=== PATIENT | female | born 1980 | race African-American/Black ===

== ENCOUNTER 2017-10-10 23:33 | Observation (INO) | payer MEDICAID, SELFPAY ==
[2017-10-10] MEDS ORDERED: Ketorolac Tromethamine 30 MG/ML VIAL ONE (23:54)
[2017-10-10] MEDS ORDERED: methylPREDNISolone Sod Succ/PF 125 MG/2 ML VIAL ONE (23:54)
[2017-10-10] MEDS ORDERED: Magnesium Sulfate 2 GM/100 ML BAG ONE (23:56)
[2017-10-11 00:18] LABS: BHCG - Serum Negative (NEGATIVE); Pregs Control Background? CLEAR/WHITE (CLR/WHITE); Pregs Control Bar Appear? YES (CONTROL BAR)
[2017-10-11] MEDS ORDERED: Ondansetron ODT 4 MG TAB SL PRN (02:43)
[2017-10-11] MEDS ORDERED: Acetaminophen 325 MG TAB PO PRN ×2 (02:43→07:29)
[2017-10-11] MEDS ORDERED: Sodium Chloride 0.9% 1,000 ML IV SCH (02:43)
[2017-10-11] MEDS ORDERED: Ondansetron HCl/PF 4 MG/2 ML Vial IVP PRN ×2 (02:43→07:29)
[2017-10-11] MEDS ORDERED: traMADol HCl 50 MG TAB PO PRN ×2 (02:45→07:29)
[2017-10-11 03:12] VITALS: BMI 36.3
[2017-10-11] MEDS ORDERED: HumaLOG 300 UNITS/3 ML VIAL SC PRN (07:24)
[2017-10-11] MEDS ORDERED: Dextrose 50% Abboject 50 ML SYRINGE SLOW IVP PRN (07:24)
[2017-10-11] MEDS ORDERED: Dextrose 5% in Water 1,000 ML IV PRN (07:24)
[2017-10-11] MEDS ORDERED: Bisacodyl 5 MG TAB PO PRN (07:29)
[2017-10-11] MEDS ORDERED: Calcium Carbonate 500 MG ChewTAB PO PRN (07:29)
[2017-10-11] MEDS ORDERED: Mag-Al 1200 mg/1200 mg/30 ML UDCUP PO PRN (07:29)
[2017-10-11] MEDS ORDERED: Senokot 8.6 MG TAB PO PRN (07:29)
[2017-10-11] MEDS ORDERED: Nitroglycerin 0.4 MG TAB (25 Tab Bottle) SL PRN (07:29)
[2017-10-11] MEDS ORDERED: Benzonatate 100 MG CAP PO PRN (07:29)
[2017-10-11] MEDS ORDERED: hydrALAZINE 20 MG/ML VIAL SLOW IVP PRN (07:29)
[2017-10-11] MEDS ORDERED: Loratadine 10 MG TAB PO PRN (07:29)
[2017-10-11] MEDS ORDERED: Diabetic Tussin 200 MG/10 ML UDCUP PO PRN (07:29)
[2017-10-11] MEDS ORDERED: cloNIDine 0.1 MG TAB PO PRN (07:29)
--- NOTE | 2017-10-11 08:47 | CT ---
PRELIMINARY REPORT/[facility]/EMERGENCY AFTER HOURS PROCEDURE: Addendum created by Charles Manriquez MD on 10/11/2017 1:01 AM Central Time ([place] & [place]) THIS REPORT CONTAINS FINDINGS THAT MAY BE CRITICAL TO PATIENT CARE. The findings and recommendation w ere verbally communicated via telephone conference with Dr May 1:00 AM LABOR UTILIZATION SUPERINTENDENT on 10/11/2017. The findi ngs and recommendation were acknowledged and understood. Initial Report created on 10/11/2017 12:53 AM Central Time ([place] & [place]) EXAM: CT Angiography Neck With Intravenous Contrast CLINICAL HISTORY: 37 years old, female; Pain; Other: Neck pain TECHNIQUE: Axial computed tomographic angiography images of the neck with intravenous contrast using CT angiogra phy protocol. Coronal and sagittal reformatted images were created and reviewed. CONTRAST: 100 mL of ISOVUE administered intravenously. COMPARISON: No relevant prior studies available. FINDINGS: VASCULATURE: Right common carotid artery: No significant stenosis. No dissection or occlusion. Right internal carotid artery: Extracranial segment is patent with no significant stenosis. No dissec tion or occlusion. Right external carotid artery: No occlusion. Right vertebral artery: No significant stenosis. No dissection or occlusion. Left common carotid artery: No significant stenosis. No dissection or occlusion. Left internal carotid artery: Extracranial segment is patent with no significant stenosis. No dissect ion or occlusion. Left external carotid artery: No occlusion. Left vertebral artery: No significant stenosis. No dissection or occlusion. Basilar artery: Fenestration of the basilar artery. No significant stenosis. No occlusion. NECK: Bones/joints: No acute fracture. No dislocation. Soft tissues: A 2.5 x 1.9 cm soft tissue mass in the left submandibular gland. Lymph nodes: Scattered nonspecific bilateral lymph nodes are present. Dental: Multiple dental restorations. CAROTID STENOSIS REFERENCE USING NASCET CRITERIA: % ICA stenosis = (1 - narrowest ICA diameter/diameter of distal cervical ICA) x 100. Mild - <50% stenosis. Moderate - 50-69% stenosis. Severe - 70-94% stenosis. Near occlusion - 95-99% stenosis. Occluded - 100% stenosis. IMPRESSION: 1. No acute findings. 2. A 2.5 cm soft tissue mass in the left submandibular gland suspicious for neoplasm. Recommend ENT c onsult. Thank you for allowing us to participate in the care of your patient. Dictated and Authenticated by: Charles Manriquez MD 10/11/2017 12:53 AM Central Time ([place] & [place]) FINAL REPORT EMERGENT AFTER HOURS CTA OF THE NECK WITH CONTRAST: TECHNIQUE: Multiple contiguous axial images were obtained in a CTA of the neck with contrast. Three-D sagittal and coronal MIP reformats were performed. FINDINGS/IMPRESSION: I agree with the findings and impression given in the preliminary report per [facility] physician. 1. There is no evidence of significant stenosis of the carotid arteries per NASCET criteria. 2. There is a left submandibular mass. POS: [facility]
[2017-10-11] MEDS: Sodium Chloride 0.9% 1,000 ML IV SCH ×2 (08:58→16:16)
[2017-10-11] MEDS: glyBURIDE 5 MG TAB PO SCH ×2 (08:58→16:23)
[2017-10-11] MEDS: Lisinopril 10 MG TAB PO SCH (08:59)
[2017-10-11] MEDS ORDERED: Lisinopril 10 MG TAB PO SCH (09:00)
--- NOTE | 2017-10-11 10:37 | HP ---
PRIMARY CARE PHYSICIAN: Yogi Carolina M.D. CHIEF COMPLAINT: Persistent headache on the right posterior skull. HISTORY OF PRESENTING ILLNESS: Ms. Grey is a very pleasant 37-year-old -British female with past medical history of diabetes mellitus and hypertension who is here with above-mentioned complain ts. History is mainly obtained by the patient herself and electronic medical records have been revie wed. The patient initially presented to [facility] yesterday for the above-mentione d complaint. She reports that she has been feeling fine up until about 1 or 2 months ago, but lately she has been having worsening headache in the posterior part of the right side which have now become constant. It has gone so severe that now she is experiencing some dizziness, vision changes, and facial droop on the right side. She got scared when these symptoms happened when she was driving in the car with her kids and had to pullover. She says holding her head and her hand somewhat alleviate the pain, but i t is very localized to the posterior right side of the head. It is associated with some nausea, but no vomiting. She does not have any history of migraines per se. She has been in otherwise in usual health. She underwent a CT scan of her head at [facility] which was unremarkable. She recei alejandra aspirin 324 mg along with Reglan and Benadryl, and was transferred to [facility] emergency room f or rule out stroke. In the emergency room at [facility], she was found to have lymph node like swelling in the left subma ndibular region and underwent a CT angio of the neck. She was found to have a 2.5 cm submandibular m ass in the left submandibular space which was suspicious for neoplasm. She was given magnesium pain medications and Solu-Medrol 125 mg IV x1 and is now being admitted for further evaluation. The patient reports that she has noticed this swelling for more than a year now. When asked, she end orses some weight loss over the course of quite a few months and night sweats. She denies any other symptoms recently. She denies any other swellings. She does have a strong history of cancer running in her family and multiple family members. Some of them had lung cancer, others bone cancer, but sh e could not specify. PAST MEDICAL HISTORY: 1. Diabetes mellitus. 2. Hypertension. PAST SURGICAL HISTORY: 1. Surgery to left broken ankle in 1997. 2. Cataract surgery, 06/2014. PSYCHIATRIC HISTORY: None. SOCIAL HISTORY: She smokes half pack of cigarettes per day. No history of drug, tobacco or alcohol abuse. FAMILY HISTORY: Multiple family members with diabetes and hypertension. Multiple family members wit h various types of cancers. Both of her parents were diabetic and they are now . Her mother of unknown type of cancer. One of her cousins recently was diagnosed with liver cirrhosis and eventually liver cancer and is . ALLERGIES: No known medication allergies. CURRENT MEDICATIONS: Levemir 40 units at bedtime, Glucotrol 2 tablets 5 mg each at bedtime, lisinopr il 10 mg in the morning. REVIEW OF SYSTEMS: The following complete review of systems was negative, unless otherwise mentioned in the HPI or below: Constitutional: Weight loss or gain, ability to conduct usual activities. Skin: Rash, itching. Eyes: Double vision, pain. ENT/Mouth: Nose bleeding, neck stiffness, pain, tenderness. Cardiovascular: Palpitations, dyspnea on exertion, orthopnea. Respiratory: Shortness of breath, wheezing, cough, hemoptysis, fever or night sweats. Gastrointestinal: Poor appetite, abdominal pain, heartburn, nausea, vomiting, constipation, or diarr hea. Genitourinary: Urgency, frequency, dysuria, nocturia. Musculoskeletal: Pain, swelling. Neurologic/Psychiatric: Anxiety, depression. Allergy/Immunologic: Skin rash, bleeding tendency. If it is negative except for those mentioned in the history and physical. PHYSICAL EXAMINATION: VITAL SIGNS: Upon presentation include blood pressure 113/68, pulse of 82, respirations 16, temperat ure 97.8, and saturating 99% on room air. GENERAL: No acute distress, awake, alert, oriented x3, very pleasant. HEENT: Mucous membrane is moist and pink. No oropharyngeal exudate or erythema. Head is normocepha lic, atraumatic. Pupils are equal, reactive to light and accommodation. NECK: Examination shows immobile nontender lymph node like swelling in the left submandibular region . No other lymph nodes noticed in the supraclavicular, cervical or posterior auricular chain. No JV D or bruit. LYMPH NODE: On examination, no inguinal lymphadenopathy noticed. No hepatosplenomegaly. CHEST: Clear to auscultation without any wheezing, rales or rhonchi. Rate and rhythm is regular wit hout any murmur, rubs or gallops. ABDOMEN: Soft, nontender, and nondistended without any hepatosplenomegaly. EXTREMITIES: Free of any cyanosis, clubbing, or edema. NEUROLOGIC: Examination is nonfocal. SKIN: Free of any rashes or bruises, feels warm and dry to touch. PSYCHIATRIC: Normal affect. LABORATORY DATA AND IMAGING DATA: 1. Her CBC is rather unremarkable. She has 1% band and 1.5% basophils. Serum chemistries show bloo d sugar of 146, otherwise unremarkable. Her liver enzymes are within normal limits. Cardiac enzymes , troponin less than 0.010, albumin 3.9, globulin 3.9, albumin to globulin ratio is 1. 2. CT scan of the brain by my review has no evidence of any mass, lesions or hemorrhages. 3. CT angio of the neck has no evidence to suggest any stenosis of the neck, blood vessels, but does show a 2.5 cm soft tissue mass in the left submandibular region in the gland suspicious for neoplasm . IMPRESSION AND PLAN: 1. Headaches. At this time, the etiology is unclear. It can be a referred pain from what she calls "a bad tooth." It is unclear if the submandibular swelling is the reason for the headache. She had a normal CT scan of the brain. Possibility of this stroke is less likely given the normal neurologi radha examination. We will request consultation with Neurology for further recommendations. At this t ketan, continue symptomatic and supportive care. We will hold off on any further imaging studies until Neurology has seen the patient. She is neurologically intact. 2. Submandibular gland mass, it is suspicious for glandular neoplasm. She does not have any lymphad enopathy on my examination. ENT has been consulted by the Emergency Room and we will follow the deysi mmendations. She most likely would need a biopsy and for this reason, we will keep her n.p.o. for no w and start her on some gentle IV fluid hydration. 3. Hypertension. Resume her home medication of lisinopril with close monitoring. 4. Diabetes mellitus. We will restart her glyburide and put her on insulin sliding scale with frequ ent Accu-Cheks. 5. Obesity. 6. History of diabetic neuropathy. 7. Tobacco abuse. The patient has been counseled. 8. Code status: FULL CODE. Discussed with the patient. DISPOSITION: Ms. Grey is being admitted for intractable headache and evaluation of submandibular gl and swelling. We will initiate the workup which can be finished as an outpatient. She is currently admitted under observation status. Further management will depend upon her clinical course.
--- NOTE | 2017-10-11 13:01 | CON ---
DATE OF CONSULTATION: 10/11/2017 CHIEF COMPLAINT: Headache, which is new onset. HISTORY OF PRESENT ILLNESS: The patient is a 37-year-old lady who has had some submandibular gland masses both sides for the past year or so and she reports that those have not caused any pain or problems to her. Her reason for current visit is headache. She has been having headaches for 1 month, but she came to the ER because of fear due to having headache while driving and she slows down and the headache is described to me as being occipital headache with radiation to the right side of the head associated with recent problems and nausea and can last several hours. There is no photophobia or phonophobia, no vomiting, no weakness of extremities or dizziness. The patient has been having them recurrently and she also is trying to find out why she has these headaches and she would like them to be resolved. Other than diabetes, she is fairly healthy. PAST MEDICAL HISTORY: The patient has diabetes and is on insulin and she is also hypertensive. The patient has had a CT angiogram of the head and neck and also has received prior CT at [facility]. PAST SURGICAL HISTORY: Left broken ankle in 1997, cataract surgery in 06/2014. SOCIAL HISTORY: Smokes half pack of cigarettes a day and does not drink alcohol. Works fulltime. FAMILY HISTORY: Multiple family members with diabetes and hypertension, and mother had hepatic cancer, one of her cousins has liver cirrhosis and had liver cancer and . CURRENT MEDICATIONS: She is on insulin, Glucotrol and lisinopril. ALLERGIES: NKDA REVIEW OF SYSTEMS: PULMONARY: Normal. No shortness of breath or cough. CARDIAC: No chest pain or palpitations. GASTROINTESTINAL: Positive for nausea. No diarrhea or vomiting. NEUROLOGIC: Positive for headaches and vision problems. GENITOURINARY: Negative for urinary frequency, dysuria, nocturia. MUSCULOSKELETAL: Negative for any aches and pains. ENDOCRINE: Positive for DM. LABORATORY DATA: Glucose 410, white count 7.6, hemoglobin 13.3, hematocrit 42.6 , and platelets 318. PT 13.6, INR 1.0 and sodium was 140, potassium 3.9, chloride 106, bicarbonate 22, BUN 8, creatinine 0.82. CT Head report noted, she has a submandibular neoplasm. PHYSICAL EXAMINATION: VITAL SIGNS: Blood pressure 118/59, temperature 97.8, pulse 87, respiratory rate is 20.. GENERAL APPEARANCE: Well-built, well-nourished lady with submandibular gland swelling bilaterally, right worse than the left. CHEST: Clear vesicular breathing. CARDIOVASCULAR: S1, S2 heard, no murmurs. Carotids clear. ABDOMEN: Soft, nontender. No organomegaly noted. MOTOR: Bulk normal, tone normal, strength is 5/5 throughout in iliopsoas, hamstrings, quadriceps, ankle dorsiflexion and plantarflexion, deltoid, biceps, triceps, wrist extension/flexion, finger extension and flexion bilaterally. Deep tendon reflexes are 1+ throughout in the knee jerks, ankle jerks and brachioradialis, biceps and triceps. SENSORY: Normal to touch, pinprick, proprioception, vibration, and temperature bilaterally. Cerebellar: Normal rtiger-bl-xwup and ocuj-pn-iczu. NEUROLOGICAL: Cranial nerves II-XII normal. Normal fundus examination. Pupils are normal, reactive to light. No facial asymmetry noted. Normal sensation and facial sensation is normal to touch bilaterally. Normal hearing bilaterally. Tongue midline. No atrophy noted and normal elevation of palate. IMPRESSION: The patient is a 37-year-old lady with longstanding diabetes and hypertension. She has had 1 year history of swelling of submandiublar glands and has gone through some investigations based on her prior records as well. At this time, she presents with a 1 month history of headaches and headaches have increased in severity and yesterday when she was driving she had a headache had to slow down. The headache is unilateral causes vision disturbance , starts in the occipital area and occupies the right side. While this headache has a quality of migraine, palpation in the occipital area did not enunciate any headache and does not seem to be consistent with occipital neuralgia. The rest of the neurological exam is normal and most likely this is headache consistent with migraine. RECOMMENDATIONS: 1. I would like to obtain an MRI since she has submandibular gland enlargement. I am not sure whether there is any extension of this enlargement of this neoplasm which may be causing some headaches. 2. I would like to go ahead and start her on Topamax to see if we can control some of the headaches. 3. I will follow up with you. HARRIET
--- NOTE | 2017-10-11 13:51 | MRI ---
MRI OF THE BRAIN WITHOUT AND WITH CONTRAST: COMPARISON: None. HISTORY: Generalized headaches for 1 year. Severe headache caused blurry vision yesterday. Submandibular mas s. TECHNIQUE: Multiplanar, multisequence MR images were obtained in the brain without and with IV contrast. FINDINGS: The brain demonstrates normal signal intensity on all obtained sequences. No restricted diffusion or abnormal enhancement are seen. There is no evidence of hydrocephalus, intracranial hemorrhage, or extraaxial fluid collection. The expected flow voids are present. The corpus callosum, pituitary, and craniocervical junction are unr emarkable. The calvarium and overlying soft tissues are unremarkable. The visualized paranasal sinuses and mast oid air cells are well aerated. Please note that this exam did not cover the region where the subman dibular mass was seen on the CTA of the neck. IMPRESSION: No evidence of acute intracranial abnormality. POS: [facility]
[2017-10-11] MEDS: HYDROcodone/Acetaminophen 5/325 mg Tablet PO PRN (15:57)
[2017-10-11] MEDS ORDERED: ISOVUE-370 76%-LOCM 1 ML ONE (16:53)
[2017-10-11] MEDS ORDERED: Gadobenate Dimeglumine 529 MG/1 ML (20ML VIAL) ONE (16:58)
[2017-10-11] MEDS: HumaLOG 300 UNITS/3 ML VIAL SC PRN (17:00)
[2017-10-11] MEDS: Topiramate 25 MG TAB PO SCH (21:41)
--- NOTE | 2017-10-11 21:49 | CON ---
DATE OF CONSULTATION: 10/11/2017. REASON FOR CONSULTATION: Left submandibular mass. CONSULTING PHYSICIAN: Jose Becerra MD HISTORY OF PRESENT ILLNESS: Ms. Grey is a 37-year-old -Turkish female who presented to the ER with a 3-day history of a right occipital headache, the etiology of which has not been able to be defined. During the workup for that headache, a CT angiogram done on her neck showed a mass in the l eft submaxillary gland. She states that this mass has been present for over a year and has not cause d her any problems. It has not been painful. It does not swell when eating. It has not turned eryt hematous or fluctuant or drained. She states that it has not changed in over a year of any significa nce. She does have a history of smoking about almost 10 pack years. She denies any pain in her mout h, bleeding, or open sores. She does have a right maxillary molar tooth that has broken off and is c ausing her some difficulty, but no problems with the teeth on the left side. She denies any difficul ty swallowing, hoarseness, shortness of breath, or weight loss. She had not noticed any other lumps or masses. I was asked to evaluate this mass to see if anything further needs to be done. Please se e her admission history and physical for further details of her past medical history and review of sy stems. PHYSICAL EXAMINATION: HEAD: Normocephalic, atraumatic. EYES: Pupils are equal, round, and reactive to light. Extraocular movements intact. EARS: Tympanic membranes are intact, mobile, and clear. No signs of any fluid or infection noted. She does have a right preauricular pit that is draining. NOSE: Normal mucosa without drainage or lesions. ORAL CAVITY AND OROPHARYNX: Shows her dentition overall is good. Does show a broken off right maxil avelino molar tooth. No inflammation or drainage was noted. Does have a very narrow and shallow pharyn x with 2+ tonsils. No evidence of any mucosal lesions, ulcerations, or masses. No palpable masses w ere noted. NECK: Does show a 2.5 cm firm left submandibular mass that is nontender and mobile. No evidence of any other lymphadenopathy or masses. LUNGS: Clear to auscultation. HEART: Rate and rhythm regular without murmur or gallop. NEUROLOGIC: Cranial nerves III-XII are intact. CT scan was reviewed and shows a well-circumscribed 2.5 cm left submandibular mass. No other signifi cant lymphadenopathy or masses are noted. 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 Recommen ded fine-needle aspirate of this mass and also discuss the possibility of excision of her left subman dibular gland and removal of the mass. This can all be done as an outpatient, does not require inter vention in the hospital, after her evaluation is finished.
[2017-10-12] MEDS: glyBURIDE 5 MG TAB PO SCH (06:33)
[2017-10-12] MEDS: HumaLOG 300 UNITS/3 ML VIAL SC PRN (06:47)
[2017-10-12 06:52] VITALS: TEMP 97.9
[2017-10-12 09:25] VITALS: BP 127/74
[2017-10-12] MEDS: Lisinopril 10 MG TAB PO SCH (09:51)
[2017-10-12] MEDS: Topiramate 25 MG TAB PO SCH (09:51)
[2017-10-12] MEDS: HYDROcodone/Acetaminophen 5/325 mg Tablet PO PRN (09:52)
[2017-10-12] MEDS ORDERED: Topiramate 25 MG TAB PO SCH (10:43)
[2017-10-12] MEDS: Sodium Chloride 0.9% 1,000 ML IV SCH (11:05)
--- NOTE | 2017-10-12 11:30 | PRG ---
DATE OF SERVICE: 10/12/2017 CHIEF COMPLAINT: Headache. INTERVAL HISTORY: The patient reports she is better and her headache is definitely improved since ye and she is getting ready to go home at this time and current workup, MRI scan of the brain di d not show any abnormalities and no lesions were noted on the MRI and her laboratory workup showed a glucose level of 248. PHYSICAL EXAMINATION: VITAL SIGNS: Her blood pressure 127/74, temperature 97.9, pulse 74, respiratory rate 16. GENERAL APPEARANCE: Well-built, well-nourished lady who seems comfortable. NEUROLOGIC: Higher intellectual functions, normal orientation to time, place and person and cranial nerves II-XII normal extraocular movements. No facial asymmetry. Tongue midline, no atrophy noted. Normal hearing. Motor examination: Bulk normal, tone normal, strength is 5/5 in upper and lower ex tremities and gait examination is normal. IMPRESSION: The patient is a 37-year-old lady who presents to the hospital with occipital headache a nd headache radiating to the right side of the head along with visual disturbance while driving and t his was very concerning to her. Therefore, she came to the hospital. She has had these symptoms for 1 month on and off and is not on any prophylactic medication at this time. She has not seen a neuro logist as an outpatient. Incidentally she also has the submandibular gland swelling on the left side for at least a year and she has already been seen for this condition. Examination shows normal neur ological exam. At this time, she is stable and can be discharged. RECOMMENDATIONS: Please increase Topamax to 50 mg p.o. b.i.d. so she can have better therapeutic ran ge of Topamax. I advised patient to see an outpatient neurologist. Please refer her to the local ne urologist here, either Dr. Woods or Dr. Sunshine and they can follow up with her.
--- NOTE | 2017-10-12 17:12 | DIS ---
For details of the history and physical and the consultative notes, please refer to dictations on rec ord. SUMMARY: A 37-year-old female patient who presented here with intractable posterior headache associa marcela with some mandibular mass. The patient was evaluated by the following consultants, Dr. Mayo and Dr. Daugherty. The patient did undergo MRI that did not show any extension of this mandibular mass; th erefore, a decision was taken to have this patient complete the workup as an outpatient. Fine needle biopsy was also recommended. The patient has a plan to follow up with Dr. Mayo as an outpatient. The patient is very eager to be discharged home today. On examination today, the patient was found not to be in any obvious distress, hemodynamically stable . The patient, therefore to be discharged home today to continue with her home medications and follo w up with Dr. Mayo as an outpatient.
== END 2017-10-12 11:33 | disposition home or self-care (01) ==
LOC: ERS 23:33 → SURG B 10-11 01:29
PROVIDERS: ADMIT Internal Medicine; ATTEND Internal Medicine
DX: R51 Headache (principal); K11.8 Other diseases of salivary glands; R29.810 Facial weakness; I10 Essential (primary) hypertension; E11.40 Type 2 diabetes mellitus with diabetic neuropathy, unspecified; F17.210 Nicotine dependence, cigarettes, uncomplicated; E66.9 Obesity, unspecified; Z68.36 Body mass index [BMI] 36.0-36.9, adult; Z79.4 Long term (current) use of insulin; Z79.899 Other long term (current) drug therapy; Z80.0 Family history of malignant neoplasm of digestive organs; Z98.49 Cataract extraction status, unspecified eye; Z98.51 Tubal ligation status; Z98.890 Other specified postprocedural states
CPT/HCPCS: 36415; 36416; 70498; 70553; 84703; 96361; 96365; 96375; A9579; G0378; J1885; J2930; J3475

== ENCOUNTER 2017-11-19 08:47 | Day surgery (SDC) | payer OTHER ==
[2017-11-18 16:01] VITALS: BMI 35.6
[2017-11-19] MEDS ORDERED: Lidocaine 1% w/Epinephrine 1:200K 30 ML VIAL ONE (11:25)
[2017-11-19] MEDS ORDERED: Fentanyl 100 MCG/2 ML VIAL ONE ×3 (11:28→13:47)
[2017-11-19] MEDS ORDERED: Promethazine HCl 25 MG/ML VIAL ONE (14:15)
[2017-11-19] MEDS ORDERED: Ondansetron HCl/PF 4 MG/2 ML Vial ONE (16:16)
[2017-11-19] MEDS ORDERED: Lidocaine 1% PF 5 ML VIAL ONE (16:16)
[2017-11-19] MEDS ORDERED: Dexamethasone 20 MG/5 ML VIAL ONE (16:16)
[2017-11-19] MEDS ORDERED: Propofol 200 MG/20 ML VIAL ONE (16:16)
[2017-11-19] MEDS ORDERED: Glycopyrrolate 0.2 MG/ML 5 ML SYRINGE ONE (16:16)
--- NOTE | 2017-11-20 14:54 | OP ---
DATE OF PROCEDURE: 11/19/2017 PREOPERATIVE DIAGNOSIS: Left submandibular gland tumor. 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 SURGEON: Randy Craig M.D. ESTIMATED BLOOD LOSS: 20 mL COMPLICATIONS: None. ANESTHESIA: GETA. DESCRIPTION OF PROCEDURE: The patient was taken to the operating room and placed supine on the table . General endotracheal anesthesia was obtained by the Anesthesia staff. Head was turned gently towa rds the right exposing the left parotid gland marking the left submandibular gland area. Following t his, 8 mL 1% lidocaine with 1:100,000 epinephrine was injected into the anticipated incision line in a skin crease approximately 2 cm below the angle of the mandible. Following this, the patient was pr epped and draped in standard surgical fashion. 15 blade was used to make an incision in the horizont al skin crease through skin, subcutaneous tissue, and platysmal layer. Following this, the subplatys mal flaps were elevated superiorly to the level of the angle of the mandible. The fascia overlying t he submandibular gland was then elevated, identifying the left marginal mandibular nerve and identify ing and suture ligating the facial artery and vein. Following this, inferiorly, the gland was freed from its lower attachment and the digastric muscle was identified. The hypoglossal nerve was identif ied as well. The facial vein running just inferior and posterior to the gland was suture ligated as well. The gland was freed inferiorly and was displaced more inferiorly with an Allis clamp. The vidhi gual nerve was identified and its post-ganglionic fibers were suture ligated immediately adjacent to the submandibular gland. Following this, the mylohyoid muscle was identified and was retracted anter iorly exposing the submandibular gland duct, which was then clamped with a right-angle clamp and sutu re ligated. The mass was removed. The wound was irrigated and closed with Monocryl stitches for the submandibular fascia and platysmal layers and subcuticular layers and Dermabond for the skin. The p atient tolerated the procedure well.
== END 2017-11-19 15:55 | disposition home or self-care (01) ==
LOC: SDC 08:47
PROVIDERS: ATTEND Otolaryngology Plastic Surgery within the Head & Neck
PROC: 0CTH0ZZ Resection of Left Submaxillary Gland, Open Approach (ICD-10-PCS; principal; 2017-11-19)
DX: D11.7 Benign neoplasm of other major salivary glands (principal); K11.23 Chronic sialoadenitis; E11.9 Type 2 diabetes mellitus without complications; F17.200 Nicotine dependence, unspecified, uncomplicated; Z79.4 Long term (current) use of insulin; Z79.2 Long term (current) use of antibiotics; Z79.899 Other long term (current) drug therapy
CPT/HCPCS: 36415; 36416; 85014; 88307; 96374; J1100; J2001; J2405; J2550; J2704; J3010

== ENCOUNTER 2018-04-08 09:12 | Outpatient (CLI) | payer OTHER | END 2018-04-08 09:13 | disposition home or self-care (01) | LOC: BICMAMMO 09:12 | PROVIDERS: ATTEND Family Medicine | DX: N63.0 Unspecified lump in unspecified breast (principal); R92.1 Mammographic calcification found on diagnostic imaging of breast | CPT/HCPCS: 77066; G0279 ==

== ENCOUNTER → 2018-04-13 | Day surgery (SDC) | payer OTHER | LOC: BICULT 12:22 | PROVIDERS: ATTEND Family Medicine | PROC: 0HBU3ZX Excision of Left Breast, Percutaneous Approach, Diagnostic (ICD-10-PCS; principal; 2018-04-13) | DX: C50.812 Malignant neoplasm of overlapping sites of left female breast (principal); Z17.1 Estrogen receptor negative status [ER-] | CPT/HCPCS: 19100; 76942; 88305 ==

== ENCOUNTER 2018-05-11 10:45 | Day surgery (SDC) | payer OTHER ==
[2018-05-08 08:47] VITALS: BMI 36.7
[2018-05-11] MEDS ORDERED: Midazolam HCl 2 mg/2 ml Vial ONE (10:58)
[2018-05-11] MEDS ORDERED: Fentanyl 100 MCG/2 ML VIAL ONE (10:58)
[2018-05-11] MEDS ORDERED: PROPOFOL 40 ML ONE (10:59)
[2018-05-11] MEDS ORDERED: CEFAZOLIN/Water 2 GM/20 ML SYRINGE ONE (11:06)
[2018-05-11] MEDS ORDERED: Lidocaine 2% 10 ML INJ ONE (11:11)
[2018-05-11] MEDS ORDERED: Bupivacaine/Epinephrine 0.25% 30 ML VIAL ONE (11:11)
[2018-05-11] MEDS ORDERED: PHENYLEPHRINE-NS 100 MCG/ML 10 ML SYRINGE ONE (11:59)
[2018-05-11] MEDS ORDERED: Lidocaine 1% PF 5 ML VIAL ONE (11:59)
[2018-05-11] MEDS ORDERED: Ondansetron HCl/PF 4 MG/2 ML Vial ONE (11:59)
[2018-05-11] MEDS ORDERED: PROPOFOL 200 MG/20 ML VIAL ONE (11:59)
--- NOTE | 2018-05-11 13:23 | RAD ---
UPRIGHT PORTABLE CHEST ONE VIEW: History: 38-year-old female with history of follow up Mediport catheter placement for position evaluation. FINDINGS: Right sided Mediport catheter has been placed. No pneumothorax or pleural effusion. Catheter tip is i n the region of the superior vena cava. IMPRESSION: Successful right subclavian catheter and Mediport placement. POS: [facility]
--- NOTE | 2018-05-12 09:19 | OP ---
DATE OF PROCEDURE: 05/11/2018 PREOPERATIVE DIAGNOSIS: Locally invasive left breast cancer. POSTOPERATIVE DIAGNOSIS: Locally invasive left breast cancer. PROCEDURE: Tunneled central line subcutaneous port (MediPort, CT injectable). SURGEON: Lev Agosto M.D. ANESTHESIA: General. ESTIMATED BLOOD LOSS: Minimal. COMPLICATIONS: None. SPECIMEN: None. FINDINGS: Tip of the catheter is taped at the atriocaval junction. TECHINIQUE: The patient was taken to the operating room and placed supine on the table. After sedat ion was obtained, the arms were draped at the side. Her chest and bilateral neck were prepped and dr aped in a sterile fashion. Local anesthetic infiltrated over the right internal jugular vein. Intra jugular vein cannulated using a 22-gauge finder needle followed by a Seldinger needle. The wire was passed into the superior vena cava under fluoroscopic guidance. Kirk was made at the wire entrance s ite. A separate 4 cm incision made below the right clavicle. Subcutaneous pocket made below the low er incision. Tubing for the MediPort tunneled from the inferior to the superior incision and introdu cer sheath was placed over the wire into the superior vena cava under fluoroscopic guidance. The dil ator and wire removed and end of the catheter was threaded into the sheath, as the sheath was peeled away. The tip of the catheter was at the atriocaval junction. MediPort tubing cut to fit the MediPo rt at the lower incision, which is connected to the MediPort sewn to the chest and subcutaneous pocke t using Prolene. The MediPort flushes and draws blood without difficulties, flushed with a heparin f lush. All incisions were irrigated and closed using 3-0 Vicryl, 4-0 Monocryl, and Dermabond. The pa tient was en route to recovery in stable condition. All instrument counts, needle counts, lap counts were correct.
--- NOTE | 2018-05-15 14:58 | EKG ---
Test Reason : PREOP Blood Pressure : / mmHG Vent. Rate : 078 BPM Atrial Rate : 078 BPM P-R Int : 154 ms QRS Dur : 084 ms QT Int : 404 ms P-R-T Axes : 042 050 068 degrees QTc Int : 460 ms Normal sinus rhythm Normal ECG When compared with ECG of 10-FEB-2010 07:52, No significant change was found Confirmed by RANDA BRICEÑO MD ([id number]) on 05/15/2018 2:57:56 PM Referred By: JAYCEE Confirmed By:RANDA BRICEÑO MD
== END 2018-05-11 13:43 | disposition home or self-care (01) ==
LOC: SDC 10:45
PROVIDERS: ATTEND Surgery
PROC: 0JH63WZ Insertion of Totally Implantable Vascular Access Device into Chest Subcutaneous Tissue and Fascia, Percutaneous Approach (ICD-10-PCS; principal; 2018-05-11)
DX: C50.912 Malignant neoplasm of unspecified site of left female breast (principal); E11.9 Type 2 diabetes mellitus without complications; F17.210 Nicotine dependence, cigarettes, uncomplicated; Z79.4 Long term (current) use of insulin; Z79.899 Other long term (current) drug therapy; Z17.1 Estrogen receptor negative status [ER-]
CPT/HCPCS: 36416; 71045; 93005; 93010; C1788; J1642; J2001; J2250; J2405; J2704; J3010

== ENCOUNTER 2018-05-21 08:25 | Day surgery (SDC) | payer OTHER ==
[2018-05-21] MEDS ORDERED: Sodium Chloride 0.9% 30 ML ONE (09:29)
[2018-05-21] MEDS ORDERED: Pegfilgrastim 6 MG/0.6 ML Delivery Kit SQ SCH (09:30)
[2018-05-21] MEDS ORDERED: Dexamethasone 10 MG/ML VIAL SLOW IVP SCH (09:30)
[2018-05-21] MEDS ORDERED: PALONOSETRON HCL 0.05 MG/ML 5 ML VIAL IVP SCH (09:30)
[2018-05-21] MEDS ORDERED: SODIUM CHLORIDE 0.9% IVPB SCH ×2 (09:30)
[2018-05-21] MEDS ORDERED: CYCLOPHOSPHAMIDE IVPB SCH (09:30)
[2018-05-21] MEDS ORDERED: DOXORUBICIN IVPB SCH (09:30)
[2018-05-21] MEDS ORDERED: Dexamethasone 10 MG in Sodium Chloride 0.9% 50 ML IVPB SCH (09:45)
[2018-05-21] MEDS ORDERED: Palonosetron HCl 0.25 MG in Sodium Chloride 0.9% 50 ML IVPB SCH (09:45)
[2018-05-21 09:52] VITALS: BP 128/73; TEMP 98.1
== END 2018-05-21 14:52 | disposition home or self-care (01) ==
LOC: ONC/OP 08:25
PROVIDERS: ATTEND Internal Medicine Medical Oncology
DX: Z51.11 Encounter for antineoplastic chemotherapy (principal); C50.812 Malignant neoplasm of overlapping sites of left female breast; Z79.4 Long term (current) use of insulin; Z79.899 Other long term (current) drug therapy
CPT/HCPCS: 96367; 96375; 96377; 96413; 96417; A4216; J1100; J1453; J1642; J2469; J2505; J7050; J9000; J9070

== ENCOUNTER 2018-06-04 09:37 | Day surgery (SDC) | payer OTHER ==
[2018-06-04] MEDS ORDERED: DOXORUBICIN IVPB SCH (10:45)
[2018-06-04] MEDS ORDERED: SODIUM CHLORIDE 0.9% IVPB SCH ×2 (10:45→11:00)
[2018-06-04] MEDS ORDERED: Pegfilgrastim 6 MG/0.6 ML Delivery Kit SQ SCH (10:45)
[2018-06-04] MEDS ORDERED: PALONOSETRON HCL 0.05 MG/ML 5 ML VIAL IVP SCH (10:45)
[2018-06-04] MEDS ORDERED: Dexamethasone 10 MG in Sodium Chloride 0.9% 50 ML IVPB SCH (10:45)
[2018-06-04 10:57] VITALS: BP 129/69; TEMP 98
[2018-06-04] MEDS ORDERED: CYCLOPHOSPHAMIDE IVPB SCH (11:00)
[2018-06-04] MEDS ORDERED: Palonosetron HCl 0.25 MG in Sodium Chloride 0.9% 50 ML IVPB SCH (11:00)
== END 2018-06-04 15:31 | disposition home or self-care (01) ==
LOC: ONC/OP 09:37
PROVIDERS: ATTEND Internal Medicine Medical Oncology
DX: Z51.11 Encounter for antineoplastic chemotherapy (principal); C50.812 Malignant neoplasm of overlapping sites of left female breast; I10 Essential (primary) hypertension; Z98.890 Other specified postprocedural states
CPT/HCPCS: 36415; 80053; 82248; 83615; 84100; 84550; 96367; 96375; 96377; 96413; 96417; A4216; J1100; J1453; J1642; J2469; J2505; J7050; J9000; J9070

== ENCOUNTER 2018-06-07 12:20 | Inpatient (IN) | payer OTHER ==
[2018-06-07] MEDS ORDERED: Fentanyl 100 MCG/2 ML VIAL ONE (13:37)
[2018-06-07 14:21] LABS: Bilirubin Negative (Negative); Blood, Urine Negative (Negative); Clarity CLEAR (Clear); Glucose, Urine (Dipstick) >=1000 mg/dL (Negative); Leukocyte Negative (Negative); Nitrite Negative (Negative); Protein, Urine (Dipstick) Negative (Neg-Trace); Specific Gravity, Urine 1.034 (1.002-1.036)
[2018-06-07 14:55] LABS: Hemoglobin 11.2 g/dL (12.0-16.0); Mean Corpuscular HGB CONC 31.2 g/dL (32.0-36.0); Mean Corpuscular Hemoglobin 28.7 pg (27.0-31.0); Mean Corpuscular Volume 92.1 fL (78.0-98.0); Mean Platelet Volume 7.8 fL (7.4-10.4); Platelet Count 336 thou/uL (130-400); RBC Distribution Width 13.4 % (11.5-14.5); Red Blood Cell (RBC) Count 3.91 mill/uL (4.20-5.40); White Blood Cell (WBC) Count 37.6 thou/uL (4.8-10.8)
[2018-06-07 15:12] LABS: ALT (SGPT) 13 U/L (8-55); AST (SGOT) 10 U/L (5-34); Albumin 3.6 g/dL (3.5-5.0); Alkaline Phosphatase 134 U/L (40-150); Anion Gap 17 mmol/L (10-20); BUN (Urea Nitrogen) 9 mg/dL (7.0-18.7); Bilirubin, Total 0.4 mg/dL (0.2-1.2); Calc. Creatinine Clearance 0 mL/min (70-130); Carbon Dioxide 19 mmol/L (22-29); Chloride 105 mmol/L (98-107); Estimated GFR-MDRD Greater than 90; Globulin 2.9 g/dL (2.4-3.5); Glucose 342 mg/dL (70-105); Lipase Less than 4 U/L (8-78); Potassium 4.9 mmol/L (3.5-5.1); Protein, Total 6.5 g/dL (6.0-8.3); Sodium 136 mmol/L (136-145)
[2018-06-07 15:17] LABS: Band 7 % (5-11); Dohle Bodies SLIGHT; Lymphocytes 2 % (21-51); MDiff Complete? YES; Monocytes 2 % (0-10); Neutrophil 89 % (42-75); PLT Morphology Comment Appears Adequate
[2018-06-07] MEDS ORDERED: Ondansetron HCl/PF 4 MG/2 ML Vial IVP PRN (16:51)
[2018-06-07] MEDS ORDERED: Ondansetron ODT 4 MG TAB SL PRN (16:51)
[2018-06-07] MEDS ORDERED: Acetaminophen 325 MG TAB PO PRN (16:51)
[2018-06-07] MEDS ORDERED: Promethazine HCl 25 MG/ML VIAL SLOW IVP PRN (16:52)
[2018-06-07] MEDS ORDERED: Dextrose 50% Abboject 50 ML SYRINGE SLOW IVP PRN (17:14)
[2018-06-07] MEDS ORDERED: Senokot 8.6 MG TAB PO PRN (17:14)
[2018-06-07] MEDS ORDERED: Mag-Al 1200 mg/1200 mg/30 ML UDCUP PO PRN (17:14)
[2018-06-07] MEDS ORDERED: Dextrose 5% in Water 1,000 ML IV PRN (17:14)
[2018-06-07] MEDS ORDERED: Calcium Carbonate 500 MG ChewTAB PO PRN (17:14)
[2018-06-07] MEDS ORDERED: Bisacodyl 5 MG TAB PO PRN (17:14)
[2018-06-07] MEDS ORDERED: Lorazepam 2 MG/ML VIAL SLOW IVP PRN (17:26)
[2018-06-07] MEDS: Sodium Chloride 0.9% 1,000 ML IV SCH (17:38)
[2018-06-07 18:42] LABS: Lactic Acid 1.7 mmol/L (0.5-2.2)
[2018-06-07 18:44] VITALS: BMI 36.8
[2018-06-07 18:50] LABS: Troponin I Less than 0.010 ng/mL (< 0.028)
[2018-06-07] MEDS: cefTRIAXone\\ROCEPHIN 2 GM in Sodium Chloride 0.9% 100 ML IVPB SCH (19:07)
[2018-06-07] MEDS ORDERED: Vancomycin HCl 1.25 GM in Sodium Chloride 0.9% 250 ML 250 ML IVPB SCH (20:00)
--- NOTE | 2018-06-07 20:04 | CT ---
CT BRAIN WITHOUT CONTRAST: HISTORY: Headache. History of cancer. FINDINGS: No acute hemorrhage or infarct. No midline shift or mass effect. No significant vasogenic edema. The paranasal sinuses and mastoids are clear. The calvarium is intact. IMPRESSION: No acute intracranial abnormality. POS: [facility]
[2018-06-07] MEDS: Famotidine/PF 20 mg/2ml Vial SLOW IVP SCH (20:24)
[2018-06-07] MEDS: HumaLOG 300 UNITS/3 ML VIAL SC PRN (20:53)
[2018-06-07] MEDS: HYDROcodone/Acetaminophen 5/325 mg Tablet PO PRN (20:57)
[2018-06-08 04:06] LABS: Anion Gap 12 mmol/L (10-20); BUN (Urea Nitrogen) 8 mg/dL (7.0-18.7); Calc. Creatinine Clearance 162 mL/min (70-130); Calcium 7.9 mg/dL (7.8-10.44); Carbon Dioxide 21 mmol/L (22-29); Chloride 105 mmol/L (98-107); Estimated GFR-MDRD Greater than 90; Glucose 377 mg/dL (70-105); Potassium 4.4 mmol/L (3.5-5.1); Sodium 134 mmol/L (136-145)
[2018-06-08 04:13] LABS: Band 2 % (5-11); Hemoglobin 9.4 g/dL (12.0-16.0); Lymphocytes 5 % (21-51); MDiff Complete? YES; Mean Corpuscular HGB CONC 32.1 g/dL (32.0-36.0); Mean Corpuscular Hemoglobin 29.3 pg (27.0-31.0); Mean Corpuscular Volume 91.1 fL (78.0-98.0); Mean Platelet Volume 8.1 fL (7.4-10.4); Neutrophil 93 % (42-75); Platelet Count 303 thou/uL (130-400); RBC Distribution Width 13.2 % (11.5-14.5); Red Blood Cell (RBC) Count 3.21 mill/uL (4.20-5.40)
[2018-06-08] MEDS: HumaLOG 300 UNITS/3 ML VIAL SC PRN (05:37)
[2018-06-08] MEDS: HYDROcodone/Acetaminophen 5/325 mg Tablet PO PRN ×2 (05:40→21:29)
--- NOTE | 2018-06-08 06:14 | PDOC.EVN ---
Event Note - Event Note Event Note: Pt admitted 06/07/18 H&P [id number]
--- NOTE | 2018-06-08 06:59 | HP ---
CHIEF COMPLAINT: Nausea and vomiting. HISTORY OF PRESENT ILLNESS: This is a 38-year-old female with an unfortunate history of invasive ductal breast cancer of the left breast, who is currently undergoing chemotherapy regimen. The patient presents with a chief complaint of persistent nausea and vomiting that started over the last 2 days and has gotten worse. The patient was initially seen in the [place] [facility] with the above complaints and due to an inability to control the patient's nausea despite Phenergan, Zofran, steroids and Ativan use, the patient was transferred to our facility for further evaluation. The patient states that her last episode of chemotherapy was yesterday. She does state that this was her second round of chemo and she tolerated the first without difficulty. She is also complaining of accompanying headache which is actually not new. The patient has been experiencing a headache over the last 3 weeks ever since she had her port placed. However, in the last 48 hours, the headache has become more severe than usual. REVIEW OF SYSTEMS: As per HPI. CONSTITUTIONAL: The patient denies any overt fevers or chills. HEENT: No dizziness, no lightheadedness. A posterior headache extending down through her neck as described by the patient with a mild component of possible photophobia. Denies any dizziness or lightheadedness. CARDIOVASCULAR: The patient endorses having chest discomfort and tightness only when she is vomiting. No current chest pain. No palpitations. RESPIRATORY: Denies any shortness of breath, dyspnea with exertion, cough or congestion. GASTROINTESTINAL: Nausea and vomiting as stated above. Emesis is described as white. The patient also endorses decreased appetite in the same time frame. GENITOURINARY: Denies any dysuria or changes in urinary frequency, quantity color or odor. MUSCULOSKELETAL: Generalized fatigue without focal myalgia or arthralgia. PAST MEDICAL HISTORY: 1. As per above, significant for breast cancer, invasive ductal of the left breast. 2. Diabetes. 3. Status post wrist surgery. 4. Status post tubal ligation. HOME MEDICATIONS: 1. Levemir 40 units subcutaneously b.i.d. 2. Cholecalciferol 1000 units p.o. q.p.m. 3. Atorvastatin 80 mg p.o. q.p.m. 4. Albuterol 2 puffs inhalation p.r.n. 5. Promethazine 25 mg p.o. q.8 hours. 6. Lorazepam 0.5 mg p.o. b.i.d. p.r.n. 7. Amitriptyline 75 mg p.o. at bedtime. 8. Glyburide 5 mg p.o. q.a.c. 9. Lisinopril 10 mg p.o. q.a.m. ALLERGIES: No known drug allergies. SOCIAL HISTORY: The patient denies any active tobacco, alcohol or illicit drug use. The patient has a prior history of medical marijuana use. FAMILY HISTORY: The patient denies any known family history of prior similar issues either of carcinoma or persistent nausea and vomiting. PHYSICAL EXAMINATION: GENERAL: The patient is awake, alert, conversant, in no acute distress, although she does appear uncomfortable, which she attributes to her active headache. HEENT: Normocephalic, atraumatic. Pupils are equal and reactive bilaterally, equal ocular motions are intact. Moist mucous membranes. NECK: No nuchal rigidity. CARDIOVASCULAR: S1, S2. No overt murmurs, rubs or gallops. Pulses 2+ bilateral upper extremities, no pitting pedal edema. RESPIRATORY: No conversational dyspnea. No wheezes, rales or rhonchi, marginal air movement, grossly clear to auscultation bilaterally. ABDOMEN: Positive bowel sounds, soft, nontender to palpation. MUSCULOSKELETAL: Moving all 4 extremities independently. Negative Kernig's sign. LABORATORY DATA AND IMAGING: WBC 37.6, hemoglobin 11.2, hematocrit 36.0, platelets 336, neutrophils 89%, bands 7%. Sodium 136, potassium 4.9, chloride 105, bicarbonate 19, BUN 9, creatinine 0.77, glucose 342, calcium 8.0, magnesium 2.0, total bilirubin 0.4, AST 10, ALT 13, alkaline phosphatase 134. Troponin 0.01, total protein 6.5, albumin 3.6. Lipase less than 4. Urine is significant for greater than 100 of glucose and 80 of ketones. ASSESSMENT AND PLAN: This is a 38-year-old female presenting with multiple complaints, mainly intractable nausea and vomiting, leukocytosis. 1. Intractable nausea and vomiting. It is unclear as to underlying etiology. Could be secondary to her chemotherapy regimen, could be secondary to an alternative underlying process. With an essentially benign gastrointestinal examination, it is somewhat difficult to delineate. We will continue with supportive management including IV fluids, antiemetics including Phenergan, Zofran, Ativan as needed. 2. Leukocytosis. The patient did receive Neulasta approximately 2 weeks prior. It will be presumed that the patient has an active infection until proven otherwise. Go ahead and check a lactic acid, check blood cultures. Given the patient's severe headache with neck pain, suspicion is for the possibility of meningitis. Empiric vancomycin and ceftriaxone. Continue to closely monitor the patient's neurological status as well. 3. Invasive ductal carcinoma of the left breast. I appreciate Oncology consultation. We will also check a CT of the head secondary to the patient's complaints of headaches to evaluate for the possibility of gross metastases. 4. Hyperglycemia, which is likely a combination of underlying medical issues and poorly controlled diabetes. We will resume the patient on her home regimen with the addition of sliding scale insulin as needed. 5. Diet: As tolerated, regular. 6. Activity: As tolerated. 7. Deep venous thrombosis prophylaxis with enoxaparin. MTDD
[2018-06-08] MEDS ORDERED: Lorazepam 0.5 MG TAB PO PRN (07:07)
[2018-06-08] MEDS ORDERED: Loratadine 10 MG TAB PO PRN (07:08)
[2018-06-08] MEDS ORDERED: Diabetic Tussin 200 MG/10 ML UDCUP PO PRN (07:08)
[2018-06-08] MEDS ORDERED: Milk Of Magnesia 30 ML UDCUP PO PRN (07:08)
[2018-06-08] MEDS ORDERED: Temazepam 15 MG CAP PO PRN (07:08)
[2018-06-08] MEDS ORDERED: Ondansetron HCl/PF 4 MG/2 ML Vial IVP PRN (07:08)
[2018-06-08] MEDS ORDERED: Artificial Tears 18 DROP/0.9 ML EA EYE PRN (07:08)
[2018-06-08] MEDS ORDERED: Eucerin (Mineral Oil/Petrolatum,White) 30 gm Jar TOP PRN (07:08)
[2018-06-08] MEDS ORDERED: Sodium Chloride 0.65% Nasal 44 ML BOT EA NARE PRN (07:08)
[2018-06-08] MEDS ORDERED: hydrALAZINE 20 MG/ML VIAL SLOW IVP PRN (07:08)
[2018-06-08] MEDS ORDERED: Acetaminophen 325 MG TAB PO PRN (07:08)
[2018-06-08] MEDS ORDERED: Loperamide HCl 2 MG CAP PO PRN (07:08)
[2018-06-08] MEDS ORDERED: Chloraseptic Spray 180 ml Bottle PO PRN (07:08)
[2018-06-08] MEDS ORDERED: Vancomycin HCl 750 MG in Sodium Chloride 0.9% 250 ML 250 ML IVPB SCH (08:00)
[2018-06-08] MEDS: Famotidine/PF 20 mg/2ml Vial SLOW IVP SCH ×2 (08:43→21:22)
[2018-06-08] MEDS: glyBURIDE 5 MG TAB PO SCH ×3 (08:44→17:35)
[2018-06-08] MEDS: Enoxaparin Sodium 30 MG/0.3 ML SYRINGE SC SCH (08:44)
[2018-06-08] MEDS: Sodium Chloride 0.9% 1,000 ML IV SCH (08:44)
[2018-06-08] MEDS: Insulin Glargine 40 UNITS in Pre-Filled Syringe 1 EACH SC SCH ×2 (08:44→21:19)
[2018-06-08] MEDS ORDERED: Non-Formulary Item 1 EACH (Insulin Detemir 100 Units/Ml [Levemir] 40 UNIT) SQ SCH (09:00)
--- NOTE | 2018-06-08 10:53 | PDOC.PN ---
- Subjective Encounter Start Date: 06/08/18 Encounter Start Time: 07:00 -: old records requested/rev pt does not have neck pain/ stiffness, no fever, no UTI symptoms, no diarrhoea she is feeling weak, poor apatitie - Objective Resuscitation Status: Resuscitation Status FULL:Full Resuscitation MAR Reviewed: Yes Vital Signs & Weight: Vital Signs (12 hours) Temp Pulse Resp BP BP Pulse Ox 06/08/18 08:00 98 06/08/18 07:53 98.7 F 79 18 106/54 L 98 06/08/18 04:00 98.2 F 75 16 95/56 L 92 L 06/07/18 23:19 98.3 F 90 16 108/55 L 94 L Weight Weight 210 lb 8 oz I&O: 06/07/18 06/08/18 06/09/18 06:59 06:59 06:59 Intake Total 1790 Balance 1790 Result Diagrams: 06/08/18 03:25 06/08/18 03:25 Additional Labs: Accuchecks 06/08/18 06/07/18 05:28 20:30 POC Glucose 367 H 465 H Phys Exam - Physical Examination Constitutional: NAD HEENT: PERRLA, moist MMs, sclera anicteric Neck: no JVD, supple Respiratory: no wheezing, no rales, no rhonchi Cardiovascular: RRR, no significant murmur, no rub Gastrointestinal: soft, non-tender, no distention, positive bowel sounds obesity+ Musculoskeletal: no edema, pulses present Neurological: non-focal, normal sensation, moves all 4 limbs Psychiatric: normal affect, A&O x 3 Skin: no rash, normal turgor Dx/Plan (1) Hyperglycemia due to type 2 diabetes mellitus Code(s): E11.65 - TYPE 2 DIABETES MELLITUS WITH HYPERGLYCEMIA Status: Acute (2) Hypomagnesemia Code(s): E83.42 - HYPOMAGNESEMIA Status: Resolved (3) Hypotension Status: Acute (4) Intractable nausea and vomiting Code(s): R11.2 - NAUSEA WITH VOMITING, UNSPECIFIED Status: Acute (5) Leucocytosis Code(s): D72.829 - ELEVATED WHITE BLOOD CELL COUNT, UNSPECIFIED Status: Acute (6) Obesity (BMI 30-39.9) Code(s): E66.9 - OBESITY, UNSPECIFIED Status: Acute (7) Anemia of chronic disease Code(s): D63.8 - ANEMIA IN OTHER CHRONIC DISEASES CLASSIFIED ELSEWHERE Status : Chronic (8) Asthma Code(s): J45.909 - UNSPECIFIED ASTHMA, UNCOMPLICATED Status: Chronic (9) Diabetes mellitus type 2 Code(s): E11.9 - TYPE 2 DIABETES MELLITUS WITHOUT COMPLICATIONS Status: Chronic (10) Ductal carcinoma of left breast Code(s): C50.912 - MALIGNANT NEOPLASM OF UNSPECIFIED SITE OF LEFT FEMALE BREAST Status: Chronic (11) Hypertension Code(s): I10 - ESSENTIAL (PRIMARY) HYPERTENSION Status: Chronic - Plan cont current plan of care, plan discussed w/ family, continue antibiotics * wbc improving * on empiric rocephin and vancomycin, clinically does not suspect meningitis * headache is improving, related with lightheadedness due to low BP * will hold her home bp meds * start her home dose of insulin and diabetic meds * change diet to 1800 kcal ada diet * oncology to see today * monitor labs * ambulate as tolerated * continue IVF * medication reviewed as below * symptomatic treatment. Review of Systems - Review of Systems Constitutional: weakness. negative: fever, chills, sweats, malaise, other Respiratory: negative: Cough, Dry, Shortness of Breath, Hemoptysis, SOB with Excertion, Pleuritic Pain, Sputum, Wheezing Cardiovascular: negative: chest pain, palpitations, orthopnea, paroxysmal nocturnal dyspnea, edema, light headedness, other Gastrointestinal: Nausea. negative: Vomiting, Abdominal Pain, Diarrhea, Constipation, Melena, Hematochezia, Other Genitourinary: negative: Dysuria, Frequency, Incontinence, Hematuria, Retention , Other Musculoskeletal: negative: Neck Pain, Shoulder Pain, Arm Pain, Back Pain, Hand Pain, Leg Pain, Foot Pain, Other Skin: negative: Rash, Lesions, Jack, Bruising, Other - Medications/Allergies Allergies/Adverse Reactions: Allergies Allergy/AdvReac Type Severity Reaction Status Date / Time No Known Drug Allergies Allergy Verified 05/08/18 08:47 Medications: Current Medications Acetaminophen (Tylenol) 650 mg PO Q4H PRN PRN Reason: Headache/Fever or Mild Pain Hydrocodone Bitart/Acetaminophen ([place] 5/325) 1 tab PO Q4H PRN PRN Reason: Moderate Pain (4-6) Last Admin: 06/08/18 05:40 Dose: 1 tab Al Hydroxide/Mg Hydroxide (Maalox) 30 ml PO Q6H PRN PRN Reason: Heartburn or Indigestion Amitriptyline HCl (Elavil) 75 mg PO HS [facility] Artificial Tears (Tears Naturale) 0 drop EA EYE PRN PRN PRN Reason: Dry Eyes Atorvastatin Calcium (Lipitor) 80 mg PO HS [place] Bisacodyl (Dulcolax) 10 mg PO DAILYPRN PRN PRN Reason: Constipation Calcium Carbonate (Tums) 1,000 mg PO Q4H PRN PRN Reason: Heartburn or Indigestion Cholecalciferol (Vitamin D3) 1,000 units PO QPM [facility] Dextrose/Water (Dextrose 50%) 25 gm SLOW IVP PRN PRN PRN Reason: Hypoglycemia Enoxaparin Sodium (Lovenox) 30 mg SC 0900 [facility] Last Admin: 06/08/18 08:44 Dose: 30 mg Famotidine (Pepcid) 20 mg SLOW IVP Q12HR [facility] Last Admin: 06/08/18 08:43 Dose: 20 mg Glucagon (Glucagon) 1 mg IM PRN PRN PRN Reason: Hypoglycemia Glyburide (Diabeta) 5 mg PO AC [facility] Last Admin: 06/08/18 08:44 Dose: 5 mg Guaifenesin (Robitussin Sf) 200 mg PO Q4H PRN PRN Reason: Cough Hydralazine HCl (Apresoline) 10 mg SLOW IVP Q4H PRN PRN Reason: Systolic BP > 180 Dextrose/Water (D5w) 1,000 mls @ 0 mls/hr IV .Q0M PRN PRN Reason: Hypoglycemia Sodium Chloride (Normal Saline 0.9%) 1,000 mls @ 70 mls/hr IV .[id number] [facility] Last Admin: 06/08/18 08:44 Dose: 1,000 mls Ceftriaxone Sodium 2 gm/ (Sodium Chloride) 100 mls @ 200 mls/hr IVPB Q24HR [facility] Last Admin: 06/07/18 19:07 Dose: 100 mls Vancomycin HCl 750 mg/ Sodium (Chloride) 250 mls @ 250 mls/hr IVPB 0800,2000 [facility] Last Admin: 06/08/18 08:44 Dose: 250 mls Insulin Glargine 40 units/ (Miscellaneous Medication) 0.4 mls @ 0 mls/hr SC BID [facility] Last Admin: 06/08/18 08:44 Dose: 0.4 mls Insulin Human Lispro (Humalog) 0 units SC .MODERATE SLIDING SC PRN PRN Reason: Moderate Correctional Scale Last Admin: 06/08/18 05:37 Dose: 10 unit Loperamide HCl (Imodium) 2 mg PO PRN PRN PRN Reason: Diarrhea/Loose Stools Loratadine (Claritin) 10 mg PO DAILYPRN PRN PRN Reason: Sinus Symptoms Lorazepam (Ativan) 0.5 mg SLOW IVP Q6H PRN PRN Reason: Nausea/Vomiting Lorazepam (Ativan) 0.5 mg PO BID PRN PRN Reason: Anxiety Magnesium Hydroxide (Milk Of Magnesium) 30 ml PO DAILYPRN PRN PRN Reason: Constipation Mineral Oil/White Petrolatum (Eucerin Cream) 0 gm TOP BIDPRN PRN PRN Reason: Dry Skin Miscellaneous Medication (Pharmacy To Dose) 1 each IVPB PRN PRN PRN Reason: Pharmacy to dose Ondansetron HCl (Zofran Odt) 4 mg PO Q6H PRN PRN Reason: Nausea/Vomiting Ondansetron HCl (Zofran) 4 mg IVP Q6H PRN PRN Reason: Nausea/Vomiting Phenol (Chloraseptic [place] 180 Ml Bot) 0 ml PO PRN PRN PRN Reason: Sore Throat Senna (Senokot) 2 tab PO HSPRN PRN PRN Reason: Constipation Sodium Chloride ([place] Nasal [place] 0.65%) 0 ml EA NARE QIDPRN PRN PRN Reason: Nasal Congestion Sodium Chloride (Flush - Normal Saline) 10 ml IVF Q12HR [facility] Last Admin: 06/08/18 08:57 Dose: Not Given Sodium Chloride (Flush - Normal Saline) 10 ml IVF PRN PRN PRN Reason: Saline Flush Temazepam (Restoril) 15 mg PO HSPRN PRN PRN Reason: Insomnia
[2018-06-08] MEDS: Ondansetron ODT 4 MG TAB PO PRN ×2 (12:05→21:20)
[2018-06-08] MEDS: Vancomycin HCl 1.5 GM in Sodium Chloride 0.9% 250 ML 300 ML IVPB SCH (14:11)
[2018-06-08] MEDS: cefTRIAXone\\ROCEPHIN 2 GM in Sodium Chloride 0.9% 100 ML IVPB SCH (17:36)
[2018-06-08] MEDS ORDERED: Atorvastatin Calcium 40 MG TAB PO SCH (21:00)
[2018-06-08] MEDS ORDERED: Non-Formulary Item 1 EACH (Atorvastatin Calcium [Atorvastatin Calcium] 80 MG) PO SCH (21:00)
[2018-06-08] MEDS ORDERED: Non-Formulary Item 1 EACH (Cholecalciferol (Vitamin D3) [Vitamin D3] 1,000 UNIT) PO SCH (21:00)
[2018-06-09] MEDS: Sodium Chloride 0.9% 1,000 ML IV SCH (02:35)
[2018-06-09] MEDS: Vancomycin HCl 1.5 GM in Sodium Chloride 0.9% 250 ML 300 ML IVPB SCH (02:45)
[2018-06-09 08:47] VITALS: BP 122/60; TEMP 98.2
[2018-06-09 08:55] LABS: Mean Corpuscular HGB CONC 32.2 g/dL (32.0-36.0); Mean Corpuscular Hemoglobin 29.5 pg (27.0-31.0); Mean Corpuscular Volume 91.4 fL (78.0-98.0); Mean Platelet Volume 7.9 fL (7.4-10.4); Platelet Count 270 thou/uL (130-400); RBC Distribution Width 13.2 % (11.5-14.5); Red Blood Cell (RBC) Count 3.05 mill/uL (4.20-5.40); White Blood Cell (WBC) Count 4.2 thou/uL (4.8-10.8)
[2018-06-09] MEDS: glyBURIDE 5 MG TAB PO SCH ×2 (08:58→12:40)
[2018-06-09] MEDS: Famotidine/PF 20 mg/2ml Vial SLOW IVP SCH (08:58)
[2018-06-09] MEDS: Insulin Glargine 40 UNITS in Pre-Filled Syringe 1 EACH SC SCH (08:59)
[2018-06-09] MEDS ORDERED: Saccharomyces boulardii 250 MG CAP PO SCH (09:00)
[2018-06-09 09:01] LABS: Anion Gap 9 mmol/L (10-20); BUN (Urea Nitrogen) 5 mg/dL (7.0-18.7); Calc. Creatinine Clearance 173 mL/min (70-130); Calcium 7.4 mg/dL (7.8-10.44); Carbon Dioxide 23 mmol/L (22-29); Chloride 111 mmol/L (98-107); Estimated GFR-MDRD Greater than 90; Glucose 168 mg/dL (70-105); Potassium 3.4 mmol/L (3.5-5.1); Sodium 140 mmol/L (136-145)
[2018-06-09 09:07] LABS: Band 6 % (5-11); Eosinophils 1 % (0-10); Lymphocytes 28 % (21-51); MDiff Complete? YES; Monocytes 3 % (0-10); Neutrophil 62 % (42-75); PLT Morphology Comment Appears Adequate; Polychromasia SLIGHT = 2-3 cells (100X) (0-2/hpf)
[2018-06-09] MEDS: Enoxaparin Sodium 30 MG/0.3 ML SYRINGE SC SCH (09:47)
[2018-06-09] MEDS ORDERED: Potassium Chloride 20 MEQ TAB PO SCH (10:00)
--- NOTE | 2018-06-09 10:21 | DIS ---
DATE OF ADMISSION: 06/07/2018 DATE OF DISCHARGE: 06/09/2018 PRIMARY CARE PHYSICIAN: Yogi Carolina MD DISCHARGE DISPOSITION: Home. PRIMARY DISCHARGE DIAGNOSES: 1. Intractable nausea and vomiting, controlled. 2. Hypotension due to volume depletion, corrected. 3. Hyperglycemia, associated with diabetes type 2. 4. Leukocytosis, improved. 5. Hypomagnesemia, corrected. SECONDARY DISCHARGE DIAGNOSES: Hypertension; ductal carcinoma of left breast, on chemotherapy; diabe conchita, type 2; asthma; anemia of chronic disease; obesity with body mass index 36. PRIMARY PROCEDURE/OPERATION: None. RADIOLOGICAL INVESTIGATION: CT brain normal. SIGNIFICANT LABORATORY DATA: WBC 4.2, hemoglobin 9.0, platelets 270. Sodium 140, potassium 3.4, BUN 5, creatinine 0.65, calcium 7.4, blood culture negative. DISCHARGE MEDICATIONS: Phenergan 25 mg p.o. q.8 hourly p.r.n., Proventil HFA 2 puffs q.6 hourly p.r. n., amitriptyline 75 mg p.o. at bedtime, Lipitor 80 mg p.o. at bedtime, vitamin D3 1000 units p.o. da fanny, DiaBeta 5 mg p.o. a.c., Levemir insulin 40 units subcutaneously b.i.d., lisinopril 10 mg p.o. da fanny, Ativan 0.5 mg p.o. b.i.d. p.r.n., Omnicef 300 mg p.o. b.i.d. for 5 days, Florastor 250 mg p.o. d aily for 5 days. CONTRAINDICATIONS: None. CODE STATUS: FULL CODE. INPATIENT CONSULTANTS: Oncology was consulted while in hospital. TEST RESULTS PENDING ON DISCHARGE: None. ALLERGIES: No known drug allergy. DISCHARGE PLAN: Post hospital, the patient will follow up with Dr. Ibarra for chemotherapy, and pr uab hospital care physician, Dr. Calix in 1 week. HOSPITAL COURSE: This is a 38-year-old female, who was admitted by Dr. Pineda. Please see her H and P for further detail. The patient was admitted on 06/07/2018 with a complaint of nausea and vomiting. Patient has underlying history of ductal breast carcinoma, and she is getting chemotherapy. Shani guido was given Neulasta after chemotherapy. She was admitted to the hospital. She was treated symptoma tically. She had a relatively low blood pressure and high blood sugar and that was controlled while in hospital. She was treated empirically with Rocephin and vancomycin. Her culture was negative. S he was afebrile while in hospital. On discharge, we preferred to change to oral antibiotic therapy f or 5 days. This was given empirically without any known source of infection. Her abnormal electroly conchita corrected. Leukocytosis improved. This patient is doing much better clinically. The patient is seen and examined at bedside today. Her physical examination is unremarkable. All ne w medication prescription sent to her pharmacy. Her vitals are stable.
--- NOTE | 2018-06-09 10:38 | CON ---
DATE OF CONSULTATION: 06/08/2018 REASON FOR CONSULTATION: Breast cancer. HISTORY OF PRESENT ILLNESS: A 38-year-old -Turk[place] female with grade 3 invasive ductal carci noma of the left breast, triple negative with high Ki-67% undergoing dose dense chemotherapy with Adr iamycin and Cytoxan, presents to the hospital with intractable nausea and vomiting. The patient last received chemotherapy on 06/04/2018 and received Aloxi, Decadron, Emend. She also received Neulasta via [facility]. Patient states that her nausea and vomiting is worse this time than with her fi rst dose of chemotherapy. She does state that she caught it earlier this time which is why she went to the hospital for IV medicine and IV fluids. She states she was taking Zofran and Phenergan at [facility] along with steroids and Ativan and this was not controlling her symptoms. She also complains of co nstant headache, but has not improved since admission. She denies any neck stiffness or pain. She d enies fevers, mouth sores, diarrhea. Since admission, she has received IV fluids and Zofran and stat es that her symptoms have minimally improved. After admission to the hospital, she was started on va ncomycin and ceftriaxone for prophylaxis for meningitis due to her headache and at that time neck pavel n and extreme leukocytosis. REVIEW OF SYSTEMS: As per HPI. Constitutional: Denies fevers or chills. HEENT: No dizziness or l ightheadedness. Cardiovascular: No chest pain or shortness of breath on exertion. Respiratory: No shortness of breath, cough only at night. Gastrointestinal: No diarrhea or constipation. Otherwis e, as per HPI. Genitourinary: No dysuria or changes in frequency. Musculoskeletal: No focal myalg ias or arthralgias. PAST MEDICAL HISTORY: Breast cancer, diabetes. PAST SURGICAL HISTORY: Wrist surgery, tubal ligation. CURRENT MEDICATIONS: Reviewed. ALLERGIES: No known drug allergies. SOCIAL HISTORY: Smoker and continues to smoke. FAMILY HISTORY: Denies breast cancer, family history. PHYSICAL EXAMINATION: VITAL SIGNS: Stable. GENERAL: The patient is awake, alert, lying in bed in no acute distress. HEENT: Normocephalic, atraumatic. Pupils equally reactive. Moist mucous membranes. NECK: No nuchal rigidity. CARDIOVASCULAR: S1, S2 normal. CARDIAC: Regular rate and rhythm. LUNGS: Clear to auscultation bilaterally. No wheezes, rales or rhonchi. ABDOMEN: Obese, soft, nondistended, nontender. NEUROLOGIC: Nonfocal. LABORATORY DATA: White blood cells 37.6 on 06/07/2018 and 32 on 06/08/2018, hemoglobin 11.2 on 06/07 down to 9.4 on 06/08/2018, glucose 465 on admission down to 251 on 06/08/2018. Lactic acid 1.7 . IMAGING DATA: CT of the brain without contrast dated 06/07/2018 shows no acute intracranial abnormal ity. ASSESSMENT AND PLAN: A 38-year-old -Turk[place] female with grade 3 invasive ductal carcinoma of the left breast, triple negative with high Ki-67%, currently on neoadjuvant dose dense Adriamycin an d Cytoxan presenting with intractable nausea and vomiting. Nausea and vomiting is secondary to chemo therapy and has slowly improved since admission to the hospital currently receiving IV Zofran. She i s being rehydrated with IV fluids and symptoms are improving. Recommend continued supportive care an d if the patient is able to maintain p.o. intake tomorrow. This should be safe for discharge home. Her leukocytosis is secondary to Neulasta and is not indicative of infection. The patient does not a ppear to be infected and has no physical signs of meningitis and would recommend discontinuation of I V antibiotics. The patient may follow up as an outpatient for continued care of her breast cancer. Thank you for this consult.
== END 2018-06-09 13:38 | disposition home or self-care (01) | DRG 639 ==
LOC: ERS 12:20 → ONC 15:47
PROVIDERS: ADMIT Internal Medicine; ATTEND Internal Medicine
DX: E11.65 Type 2 diabetes mellitus with hyperglycemia (principal); R11.2 Nausea with vomiting, unspecified; E83.42 Hypomagnesemia; I95.9 Hypotension, unspecified; E66.9 Obesity, unspecified; D63.8 Anemia in other chronic diseases classified elsewhere; J45.909 Unspecified asthma, uncomplicated; C50.912 Malignant neoplasm of unspecified site of left female breast; I10 Essential (primary) hypertension; Z68.36 Body mass index [BMI] 36.0-36.9, adult; F17.210 Nicotine dependence, cigarettes, uncomplicated; Z92.21 Personal history of antineoplastic chemotherapy
CPT/HCPCS: 36415; 36416; 70450; 80048; 81003; 83605; 83690; 83735; 85025; 87040; 96361; 96374; A4216; J0696; J1650; J2405; J2550; J3010; J3370; J7050; Q0162; S0028

== ENCOUNTER 2018-06-18 10:08 | Day surgery (SDC) | payer OTHER ==
[2018-06-18] MEDS ORDERED: Pegfilgrastim 6 MG/0.6 ML Delivery Kit SQ SCH (10:30)
[2018-06-18] MEDS ORDERED: Palonosetron HCl 0.25 MG in Sodium Chloride 0.9% 50 ML IVPB SCH (10:30)
[2018-06-18] MEDS ORDERED: SODIUM CHLORIDE 0.9% IVPB SCH ×2 (10:30)
[2018-06-18] MEDS ORDERED: Dexamethasone 10 MG in Sodium Chloride 0.9% 50 ML IVPB SCH (10:30)
[2018-06-18] MEDS ORDERED: CYCLOPHOSPHAMIDE IVPB SCH (10:30)
[2018-06-18] MEDS ORDERED: DOXORUBICIN IVPB SCH (10:30)
[2018-06-18] MEDS ORDERED: Sodium Chloride 0.9% 30 ML ONE (10:33)
[2018-06-18 10:46] VITALS: BP 118/81; TEMP 97.6
== END 2018-06-18 15:45 | disposition home or self-care (01) ==
LOC: ONC/OP 10:08
PROVIDERS: ATTEND Internal Medicine Medical Oncology
DX: Z51.11 Encounter for antineoplastic chemotherapy (principal); C50.812 Malignant neoplasm of overlapping sites of left female breast
CPT/HCPCS: 36415; 80053; 82248; 83615; 84100; 84550; 96367; 96375; 96377; 96413; 96417; A4216; J1100; J1453; J1642; J2469; J2505; J7050; J9000; J9070

== ENCOUNTER 2018-06-24 22:43 | Observation (INO) | payer OTHER, SELFPAY ==
[2018-06-25] MEDS ORDERED: Mag-Al 1200 mg/1200 mg/30 ML UDCUP ONE (00:09)
[2018-06-25] MEDS ORDERED: Lidocaine Viscous Sol 2% 15 ml UD Cup ONE (00:09)
[2018-06-25 00:27] LABS: Troponin I Less than 0.010 ng/mL (< 0.028)
[2018-06-25] MEDS ORDERED: Acetaminophen 325 MG TAB PO PRN ×2 (02:00→12:54)
[2018-06-25] MEDS ORDERED: Ondansetron ODT 4 MG TAB SL PRN (02:00)
[2018-06-25] MEDS ORDERED: Ondansetron HCl/PF 4 MG/2 ML Vial IVP PRN (02:00)
[2018-06-25 02:09] VITALS: BMI 35.2
[2018-06-25 04:13] LABS: Troponin I Less than 0.010 ng/mL (< 0.028)
[2018-06-25] MEDS ORDERED: Aspirin 325 mg Enteric Coated Tablet PO SCH (09:00)
[2018-06-25] MEDS ORDERED: Dextrose 50% Abboject 50 ML SYRINGE SLOW IVP PRN (12:26)
[2018-06-25] MEDS ORDERED: Dextrose 5% in Water 1,000 ML IV PRN (12:26)
[2018-06-25] MEDS ORDERED: Insulin Regular 300 UNITS/3 ML VIAL SC PRN (12:26)
[2018-06-25] MEDS ORDERED: Nitroglycerin 0.4 MG TAB (25 Tab Bottle) PO PRN (12:54)
[2018-06-25] MEDS ORDERED: Calcium Carbonate 500 MG ChewTAB PO PRN (12:54)
[2018-06-25] MEDS ORDERED: Promethazine 25 MG TAB PO PRN (12:56)
[2018-06-25] MEDS ORDERED: Metoclopramide HCl 10 MG TAB PO PRN (12:56)
[2018-06-25] MEDS ORDERED: Lorazepam 0.5 MG TAB PO PRN (12:56)
[2018-06-25] MEDS ORDERED: Acetaminophen/Codeine 30-300mg Tablet PO PRN (12:56)
--- NOTE | 2018-06-25 12:56 | HP ---
DATE OF ADMISSION: 06/25/2018 PRIMARY CARE PHYSICIAN: Dr. Carolina. CHIEF COMPLAINT: Chest discomfort. HISTORY OF PRESENT ILLNESS: The patient is a 38-year-old -Mold[place] female with invasive ducta l left breast cancer, diabetes mellitus type 2, hypertension, and anxiety who presented to the emerge ncy room with chest discomfort. She initially presented to [facility] and was trans ferred to this facility. The chest discomfort is substernal, more or less constant dull pain without any aggravating or relieving factor. The pain sometimes radiates to her jaw or back. She also has nausea with vomiting. She also feels like a food stuck behind of breast bone. Sometimes the pain ge ts worse with deep breathing. She denies recent immobilization, travel, palpitations or syncope. In the emergency room, initial vital signs showed temperature 98.1, respirations 15, pulse rate of 10 4 with a blood pressure 129/81. Her EKG showed sinus rhythm without significant ST-T wave changes. Her troponins were negative. PAST MEDICAL HISTORY: 1. Invasive ductal left breast cancer, currently on chemotherapy. 2. Diabetes mellitus type 2. 3. Hypertension. 4. Anxiety, depression. PAST SURGICAL HISTORY: 1. Breast biopsy. 2. Tubal ligation. 3. Wrist surgery. 4. MediPort placement. 5. Removal of the submandibular gland tumor. ALLERGIES: Patient denies any drug allergies. CURRENT MEDICATIONS: Franklin as needed, Tylenol No. 3 as needed, Zofran as needed, Ativan as needed, P henergan as needed, Xanax 1 mg b.i.d., amitriptyline 75 mg at bedtime, Lipitor 80 mg q.a.m., Soma 350 mg b.i.d., Flexeril 10 mg at bedtime, glyburide 10 mg daily, Levemir 40 units b.i.d., lisinopril/hyd rochlorothiazide 10/12.5 daily, Reglan as needed. FAMILY HISTORY: Negative for premature coronary artery disease. SOCIAL HISTORY: She denies any tobacco, alcohol or drug use. REVIEW OF SYSTEMS: The following complete review of systems was negative, unless otherwise mentioned in the HPI or below: Constitutional: Weight loss or gain, ability to conduct usual activities. Sk in: Rash, itching. Eyes: Double vision, pain. ENT/Mouth: Nose bleeding, neck stiffness, pain, te nderness. Cardiovascular: Palpitations, dyspnea on exertion, orthopnea. Respiratory: Shortness of breath, wheezing, cough, hemoptysis, fever or night sweats. Gastrointestinal: Poor appetite, abdom inal pain, heartburn, nausea, vomiting, constipation, or diarrhea. Genitourinary: Urgency, frequenc y, dysuria, nocturia. Musculoskeletal: Pain, swelling. Neurologic/Psychiatric: Anxiety, depressio n. Allergy/Immunologic: Skin rash, bleeding tendency. PHYSICAL EXAMINATION: VITAL SIGNS: As discussed above. GENERAL: A 38-year-old female continues to have similar chest discomfort. HEENT: Head atraumatic, normocephalic. Sclerae are anicteric. Dry mucous membrane, no oral lesion. NECK: Supple, no JVD, no carotid bruit. LUNGS: Clear to auscultation bilaterally, no wheezing, rales or rhonchi. HEART: S1, S2 present. Regular rate and rhythm. No murmur, rubs, or gallops appreciated. There was some reproducible chest wall tenderness over the sternal area. SKIN: Warm and dry. LYMPH NODES: No palpable lymph nodes in the neck. ABDOMEN: Soft, nontender, bowel sounds present. No flank tenderness. EXTREMITIES: No edema or calf tenderness. NEUROLOGIC: Grossly nonfocal, moves all four extremities. PSYCHIATRIC: Alert, awake, oriented x3. Medication administered in the emergency room, GI cocktail. LABORATORY AND X-RAY FINDINGS: Chest x-ray by my review was negative for infiltrate. CT angiogram o f the chest was negative for pulmonary embolism. EKG by my review as discussed above. CBC showed WB C 2.9 with hemoglobin 10.2, hematocrit 30.8, platelet 314. D-dimer was 1.61. Chemistries showed sod ium 139, potassium 3.7, chloride 103, bicarbonate 23, BUN 5, creatinine 0.71. BNP was less than 10. Troponins were negative. IMPRESSION: 1. Atypical chest discomfort with dysphagia in a 38-year-old -[place] female with diabetes, hypertension, left breast cancer, currently on chemotherapy. Troponins have been negative. Symptoms are probably secondary to esophagitis versus esophageal stricture. She denies any radiation in the past. She feels like food stuck in esophagus. She has not eaten much over the last 2 days. She had some issues with dysphagia with solids in the past. Lately it has been more with liquids as well. We will consult Gastroenterology for assistance. We will keep her n.p.o. We will start her on IV PPI s. She used to be on ibuprofen in the past as well. 2. Diabetes mellitus type 2. We will start her on insulin sliding scale. Resume Lantus at low dose . 3. Anxiety and depression. We will continue her home anxiety medications. 4. Hypertension. We will resume her home medications. 5. Obesity with a BMI 35.2. 6. Left breast invasive ductal cancer, currently on chemotherapy. Plan of care was discussed with the patient in detail. She stated understanding.
[2018-06-25] MEDS ORDERED: hydrALAZINE 20 MG/ML VIAL SLOW IVP PRN (12:58)
[2018-06-25] MEDS ORDERED: Pantoprazole 40 MG VIAL IVP SCH (13:00)
[2018-06-25] MEDS: Sodium Chloride 0.9% 1,000 ML IV SCH (13:13)
[2018-06-25] MEDS ORDERED: Cyclobenzaprine 10 MG TAB PO SCH (21:00)
[2018-06-25] MEDS: ALPRAZolam 1 MG TAB PO SCH (21:09)
[2018-06-25] MEDS: Pantoprazole 40 MG VIAL IVP SCH (21:09)
[2018-06-25] MEDS: Insulin Regular 300 UNITS/3 ML VIAL SC PRN (21:10)
[2018-06-25] MEDS ORDERED: Insulin Glargine 25 UNITS in Pre-Filled Syringe 1 EACH SC SCH (21:45)
[2018-06-26] MEDS: Insulin Regular 300 UNITS/3 ML VIAL SC PRN (02:07)
[2018-06-26] MEDS: Sodium Chloride 0.9% 1,000 ML IV SCH ×2 (02:52→13:51)
--- NOTE | 2018-06-26 05:40 | CON ---
DATE OF CONSULTATION: 06/25/2018 CHIEF COMPLAINT: Chest pain. HISTORY OF PRESENT ILLNESS: Ms. Grey is a 38-year-old woman, who is undergoing chemotherapy for josh ast cancer with her last dose having been a week ago, who presented to the emergency room last night with chest pain. She complains of a substernal cramping, constant pain that radiates through to her back. She had a CT of her chest, a CT angiogram which was negative. She has had some nausea and vom iting that seems to have exacerbated the symptoms. She for the last several months complains of kelly d food dysphagia. The food will get stuck in the mid substernal region and then usually she has to v omit the bolus back up. She has had no abdominal pain, no diarrhea, no constipation, no weight loss. She has not taken any medications for the trouble swallowing, but has been on Zofran and some Rdaha n which has helped with the nausea some. PAST MEDICAL HISTORY: Breast cancer, currently on chemotherapy; diabetes mellitus, type 2; hypertens ion. PAST SURGICAL HISTORY: Tubal ligation, she had a resection of a submandibular gland tumor, MediPort placement, wrist surgery, ankle surgery, breast biopsy. FAMILY HISTORY: Negative for GI malignancies. SOCIAL HISTORY: No alcohol, tobacco or drugs. ALLERGIES: No known drug allergies. MEDICATIONS: Prior to admission include amitriptyline, Lipitor, glyburide, insulin, lisinopril with hydrochlorothiazide, Reglan, Soma, Flexeril, amitriptyline, Phenergan as needed, Ativan as needed, Zo lizz as needed, Tylenol No. 3 or [place]. REVIEW OF SYSTEMS: Negative x10 systems reviewed except as stated in the history of present illness. PHYSICAL EXAMINATION: VITAL SIGNS: Temperature 98.4, pulse is 94, blood pressure 114/54. GENERAL: She is in no acute distress, alert and oriented x3. HEENT: Eyes have no scleral icterus. Oropharynx is clear without lesions. NECK: No cervical or supraclavicular lymphadenopathy. LUNGS: Clear to auscultation bilaterally. HEART: Regular rate and rhythm without murmur. ABDOMEN: Soft, nontender, nondistended. Bowel sounds are present. EXTREMITIES: No lower extremity edema. NEUROLOGIC: Cranial nerves are grossly intact. LABORATORY DATA: White blood cell count 2.9, hemoglobin 10.2, platelets 314, neutrophils 47%. Labs from 06/21/2018, bilirubin is 0.6, AST 9, ALT 15, alkaline phosphatase 135, albumin 3.8. IMPRESSION: 1. Substernal chest pain may be related to the vomiting or reflux esophagitis. The pill esophagitis is a consideration, but there has been no obvious antibiotics or particular pill that would be expec marcela to cause this. 2. Solid food dysphagia in the mid substernal region, consistent with a stricture or narrowing in th e esophagus. RECOMMENDATIONS: 1. Proton pump inhibitor. 2. EGD tomorrow.
[2018-06-26] MEDS: ALPRAZolam 1 MG TAB PO SCH (08:18)
[2018-06-26] MEDS: Pantoprazole 40 MG VIAL IVP SCH (08:20)
[2018-06-26] MEDS ORDERED: Insulin Glargine 20 UNITS in Pre-Filled Syringe 1 EACH SC SCH (09:00)
[2018-06-26] MEDS ORDERED: Lisinopril/Hydrochlorothiazide 10 mg/12.5 mg Tablet PO SCH (09:00)
[2018-06-26] MEDS ORDERED: PROPOFOL 200 MG/20 ML VIAL ONE (09:57)
[2018-06-26] MEDS ORDERED: Sodium Chloride 0.9% 10 ML ONE (11:19)
[2018-06-26] MEDS ORDERED: Fluconazole In NaCl,Iso-Osm 400 MG in Premix Bag 1 BAG IVPB SCH (12:30)
--- NOTE | 2018-06-26 12:41 | OP ---
DATE OF PROCEDURE: 06/26/2018 PROCEDURE PERFORMED: Esophagogastroduodenoscopy with esophageal biopsy and esophageal balloon dilati on. PREOPERATIVE DIAGNOSES: Odynophagia and dysphagia. OPERATIVE NOTE: Informed consent was obtained from the patient. She was sedated with total intraven ous anesthesia. The bite block was placed and the endoscope was advanced easily to the second portio n of the duodenum and retroflexion was performed in the stomach. The esophagus had fungal esophagiti s in the distal esophagus. There were multiple small white plaques in the distal esophagus. There w as also a partial ring in the distal esophagus. This was dilated with an 18 mm balloon dilator. The re was no significant mucosal tear with dilation. The stomach was normal including retroflexed views . There was some residual food material in the stomach, indicating some delayed emptying. The pylor us and first and second portions of the duodenum were normal. IMPRESSION: 1. Fungal esophagitis, biopsied. 2. Distal esophageal ring dilated to 18 mm with a balloon. 3. Otherwise normal esophagogastroduodenoscopy overall with some residual food residue in the stomac h. RECOMMENDATIONS: 1. Fluconazole 400 mg today and then 200 mg daily for 13 more days. 2. Await histopathology. 3. Proton pump inhibitor orally once daily. 4. I will sign off. Please call if GI can be of assistance.
[2018-06-26 16:08] VITALS: BP 167/88; TEMP 98.8
[2018-06-27] MEDS ORDERED: Fluconazole 100 MG TAB PO SCH (09:00)
--- NOTE | 2018-06-27 10:57 | DIS ---
DATE OF ADMISSION: 06/25/2018 DATE OF DISCHARGE: 06/26/2018 DISCHARGE DISPOSITION: Home. FOLLOWUP: 1. Follow up with primary care physician, Dr. Carolina in 1 week. 2. Follow up with GI, Dr. Amado in 2 weeks. 3. Follow up with Oncology service as scheduled. ALLERGIES: No known drug allergies. The patient was seen and examined on the day of discharge, denies any new complaints. DISCHARGE MEDICATIONS: 1. Protonix 40 mg daily. 2. Fluconazole 200 mg daily for 13 days. BRIEF HOSPITAL COURSE: Patient is a 38-year-old female with invasive left breast ductal cancer, curr ently on chemotherapy who presented to the hospital with chest discomfort along with feeling of food stuck behind her breast bone. Please refer to the history and physical for further details. The patient was admitted to the telemetry unit with a diagnosis of atypical chest discomfort. Serial troponins remain negative. The patient was seen by Gastroenterology, Dr. Amado. She underwent an E GD that showed findings consistent with fungal esophagitis with distal esophageal ring, which was dil ated to 18 mm with a balloon. She received fluconazole 400 mg IV x1. She will continue fluconazole at home. PPIs has also been started. She has been cleared by Gastroenterology Service for discharge . FINAL DIAGNOSES: 1. Atypical chest pain secondary to fungal esophagitis. 2. Diabetes mellitus type 2. 3. Anxiety, depression 4. Gastroesophageal reflux disease. 5. Hypertension. 6. Obesity with a BMI of 35.2. 7. Left breast invasive ductal cancer, on chemotherapy. Plan of care was discussed with the patient in detail. She stated understanding.
--- NOTE | 2018-06-27 13:47 | EKG ---
Test Reason : Blood Pressure : / mmHG Vent. Rate : 099 BPM Atrial Rate : 099 BPM P-R Int : 142 ms QRS Dur : 082 ms QT Int : 372 ms P-R-T Axes : 046 034 036 degrees QTc Int : 477 ms Normal sinus rhythm Nonspecific T wave abnormality Abnormal ECG Confirmed by NUBIA MARQUEZ DO ([id number]), marketing editor ANNA APPIAH ([id number] on 06/27/2018 1:46:56 PM Referred By: Confirmed By:NUBIA MARQUEZ DO
== END 2018-06-26 18:06 | disposition home or self-care (01) ==
LOC: ERS 22:43 → ERHOLD 06-25 00:15 → 2SW 06-25 01:44
PROVIDERS: ADMIT Internal Medicine; ATTEND Internal Medicine
PROC: 0D738ZZ Dilation of Lower Esophagus, Via Natural or Artificial Opening Endoscopic (ICD-10-PCS; principal; 2018-06-26)
PROC: 0DB38ZX Excision of Lower Esophagus, Via Natural or Artificial Opening Endoscopic, Diagnostic (ICD-10-PCS; 2018-06-26)
DX: B37.81 Candidal esophagitis (principal); K22.2 Esophageal obstruction; R13.10 Dysphagia, unspecified; R07.89 Other chest pain; C50.912 Malignant neoplasm of unspecified site of left female breast; E11.9 Type 2 diabetes mellitus without complications; I10 Essential (primary) hypertension; F41.9 Anxiety disorder, unspecified; F32.9 Major depressive disorder, single episode, unspecified; E66.9 Obesity, unspecified; Z68.35 Body mass index [BMI] 35.0-35.9, adult; Z79.899 Other long term (current) drug therapy; Z79.4 Long term (current) use of insulin; Z95.828 Presence of other vascular implants and grafts
CPT/HCPCS: 36415; 36416; 84484; 88305; 88312; 88313; 90471; 90686; 93005; 96361; 96374; 96376; A4216; C9113; G0008; G0378; J1450; J1642; J1815; J2405; J2704

== ENCOUNTER 2018-07-02 09:20 | Day surgery (SDC) | payer OTHER ==
[2018-07-02] MEDS ORDERED: Palonosetron HCl 0.25 MG in Sodium Chloride 0.9% 50 ML IVPB SCH (09:45)
[2018-07-02] MEDS ORDERED: [UNRECOGNIZED DRUG - OTHER] IVPB SCH (09:45)
[2018-07-02] MEDS ORDERED: CYCLOPHOSPHAMIDE IVPB SCH ×4 (09:45→10:00)
[2018-07-02] MEDS ORDERED: Dexamethasone 10 MG in Sodium Chloride 0.9% 50 ML IVPB SCH (09:45)
[2018-07-02] MEDS ORDERED: DOXORUBICIN IVPB SCH (09:45)
[2018-07-02] MEDS ORDERED: Pegfilgrastim Onpro 6 MG/0.6 ML SQ SCH (09:45)
[2018-07-02] MEDS ORDERED: SODIUM CHLORIDE 0.9% IVPB SCH ×4 (09:45→10:00)
[2018-07-02] MEDS ORDERED: Fosaprepitant Dimeglumine 150 MG in Sodium Chloride 0.9% 250 ML 150 ML IVPB SCH (09:45)
[2018-07-02 09:59] VITALS: BP 145/74; TEMP 97.8
[2018-07-02] MEDS ORDERED: Sodium Chloride 0.9% 20 ML ONE (12:48)
== END 2018-07-02 19:34 | disposition home or self-care (01) ==
LOC: ONC/OP 09:20
PROVIDERS: ATTEND Internal Medicine Medical Oncology
DX: Z51.11 Encounter for antineoplastic chemotherapy (principal); C50.812 Malignant neoplasm of overlapping sites of left female breast; I10 Essential (primary) hypertension; E11.9 Type 2 diabetes mellitus without complications; E78.5 Hyperlipidemia, unspecified; F17.200 Nicotine dependence, unspecified, uncomplicated; Z79.4 Long term (current) use of insulin; Z79.899 Other long term (current) drug therapy
CPT/HCPCS: 36415; 80053; 82248; 83615; 84100; 84550; 96367; 96375; 96377; 96413; 96417; J1100; J1453; J1642; J2469; J2505; J7050; J9070

== ENCOUNTER 2018-07-16 10:03 | Day surgery (SDC) | payer OTHER ==
[2018-07-16] MEDS ORDERED: Sodium Chloride 0.9% 20 ML ONE (10:08)
[2018-07-16] MEDS ORDERED: Ondansetron HCl/PF 4 MG/2 ML Vial SLOW IVP SCH (10:15)
[2018-07-16] MEDS ORDERED: Sodium Chloride 0.9% 1,000 ML IV SCH (10:15)
[2018-07-16] MEDS ORDERED: PACLitaxel 160 MG in Sodium Chloride 0.9% 250 ML 250 ML IVPB SCH (10:30)
[2018-07-16] MEDS ORDERED: Dexamethasone 4 mg/ml Vial SLOW IVP SCH (10:30)
[2018-07-16 10:42] VITALS: BP 118/64; TEMP 98.6
[2018-07-16] MEDS ORDERED: ALPRAZolam 0.5 MG TAB PO SCH (13:45)
== END 2018-07-16 14:49 | disposition home or self-care (01) ==
LOC: ONC/OP 10:03
PROVIDERS: ATTEND Internal Medicine Medical Oncology
DX: Z51.11 Encounter for antineoplastic chemotherapy (principal); C50.812 Malignant neoplasm of overlapping sites of left female breast
CPT/HCPCS: 96361; 96375; 96413; 99211; G0463; J1100; J1642; J2405; J7050; J9267

== ENCOUNTER 2018-07-23 10:39 | Inpatient (IN) | payer OTHER ==
[2018-07-23] MEDS ORDERED: Ondansetron PF 4 MG/2 ML Vial IVP PRN ×2 (12:28→18:55)
[2018-07-23] MEDS ORDERED: Morphine 10 MG/ML VIAL SLOW IVP PRN (12:29)
[2018-07-23] MEDS ORDERED: D5 1/2 NS w/20 mEq KCL 1,000 ML IV SCH (12:30)
[2018-07-23] MEDS ORDERED: Lorazepam 2 MG/ML VIAL SLOW IVP SCH (12:30)
[2018-07-23] MEDS ORDERED: Sodium Chloride 0.9% 1,000 ML IV SCH (12:45)
[2018-07-23 13:06] VITALS: BMI 32.4
[2018-07-23] MEDS ORDERED: Iopamidol 370 76% 100 ML VIAL ONE (13:31)
--- NOTE | 2018-07-23 16:09 | CT ---
CT OF THE CHEST WITH CONTRAST CT ABDOMEN AND PELVIS: Comparison: CTA chest 06-23-18, CT abdomen 01-22-17 and 09-28-04 History: Left breast cancer in the 12:00 position of the left breast. Evaluate for metastatic disease . Technique: 1. Multiple contiguous axial images were obtained in a CT of the chest with contrast. Coronal reforma ts were performed. 2. Multiple contiguous axial images were obtained in a CT of the abdomen and pelvis with contrast. Co chapito reformats were performed. FINDINGS: CT CHEST: There is a right sided Mediport with its tip in the superior vena cava. The heart is normal in size w ithout focal cardiac abnormality. No hilar or mediastinal lymphadenopathy is seen. A calcified granuloma is seen in the left lower lobe of the lungs. No suspicious pulmonary nodules ar e seen. No pneumothorax or pleural effusion is seen. The bones of the thorax are unremarkable without suspicious osseous lesions identified. There is a st able mass in the left breast measuring 4.2 cm in greatest dimension. No axillary adenopathy is apprec iated. CT ABDOMEN AND PELVIS: There appear to be gallstones in the dependent ossific gallbladder. The left kidney is seen in the pe lvis. The right kidney, adrenal glands, spleen, and pancreas are unremarkable. No free air or free fluid are seen in the abdomen or pelvis. The reproductive organs are unremarkable . Calcifications are seen in both ovaries. No abdominal or pelvic lymphadenopathy are seen. There is a slight israel appearance of the fat in the upper retroperitoneum without significant enlarged lymph nodes in this location. This is nonspecific. No suspicious osseous lesions are identified. The abdominal wall soft tissues are unremarkable. IMPRESSION: 1. No evidence of intrathoracic metastatic disease. 2. Left breast mass in the patient with known malignancy. 3. Cholelithiasis. 4. Left pelvic kidney. 5. Nonspecific israel appearance of the upper retroperitoneal fat surrounding nonenlarged lymph nodes. This is stable compared to prior CT and likely normal for this patient. POS: MAYRA
--- NOTE | 2018-07-23 16:38 | ULT ---
LEFT BREAST ULTRASOUND: 07/23/18 COMPARISON: 04/08/18. HISTORY: Left breast mass that has been diagnosed as cancer. Patient on chemotherapy but feels that the mass i s getting larger. TECHNIQUE: Multiplanar rodriguez scale and color doppler images were obtained in a targeted ultrasound of the left br east at the area of palpable abnormality. FINDINGS: At the 12 o'clock position of the left breast, there is a suspicious hypoechoic lobulated mass which demonstrates shadowing. This appears to have enlarged compared to the prior ultrasound and measures 4.3 cm in greatest dimension. Previously, it measured 2. 4 cm in greatest dimension. IMPRESSION: Enlarging left breast mass is consistent with patient's known left breast malignancy. POS: MAYRA
[2018-07-23] MEDS ORDERED: hydrALAZINE 20 MG/ML VIAL SLOW IVP PRN (18:55)
[2018-07-23] MEDS ORDERED: HYDROcodone/Acetaminophen 5/325 mg Tablet PO PRN ×2 (18:55→19:02)
[2018-07-23] MEDS ORDERED: Dextrose 50% Abboject 50 ML SYRINGE SLOW IVP PRN (18:55)
[2018-07-23] MEDS ORDERED: Dextrose 5% in Water 1,000 ML IV PRN (18:55)
[2018-07-23] MEDS ORDERED: Promethazine HCl 25 MG/ML VIAL IM/IV PRN (18:55)
[2018-07-23] MEDS ORDERED: Metoclopramide HCl 10 MG/2 ML VIAL IVP PRN (18:55)
[2018-07-23] MEDS ORDERED: Acetaminophen 500 MG TAB PO PRN (18:55)
[2018-07-23] MEDS ORDERED: Ondansetron ODT 8 MG TAB PO PRN (18:55)
[2018-07-23] MEDS ORDERED: HumaLOG 300 UNITS/3 ML VIAL SC PRN (18:55)
[2018-07-23] MEDS: D5 NS w/ 40 mEq KCl 1,000 ML IV SCH (20:00)
[2018-07-23] MEDS: Pantoprazole 40 MG VIAL IVP SCH (21:06)
[2018-07-23] MEDS: ALPRAZolam 0.5 MG TAB PO SCH (21:07)
[2018-07-23] MEDS: Cyclobenzaprine 10 MG TAB PO SCH (21:09)
[2018-07-24] MEDS: HumaLOG 300 UNITS/3 ML VIAL SC PRN ×3 (05:26→16:31)
[2018-07-24 05:28] LABS: ALT (SGPT) 23 U/L (8-55); AST (SGOT) 23 U/L (5-34); Albumin 2.8 g/dL (3.5-5.0); Alkaline Phosphatase 53 U/L (40-150); Anion Gap 7 mmol/L (10-20); BUN (Urea Nitrogen) Less than 4 mg/dL (7.0-18.7); Bilirubin, Total Less than 0.2 mg/dL (0.2-1.2); Calc. Creatinine Clearance 151 mL/min (70-130); Calcium 7.7 mg/dL (7.8-10.44); Carbon Dioxide 25 mmol/L (22-29); Chloride 110 mmol/L (98-107); Estimated GFR-MDRD Greater than 90; Globulin 2.3 g/dL (2.4-3.5); Glucose 291 mg/dL (70-105); Potassium 3.9 mmol/L (3.5-5.1); Protein, Total 5.1 g/dL (6.0-8.3); Sodium 138 mmol/L (136-145)
[2018-07-24 05:30] LABS: Band 1 % (5-11); Hemoglobin 7.4 g/dL (12.0-16.0); Hypochromia SLIGHT = 6-15 cells (100X) (0-5/hpf); Lymphocytes 18 % (21-51); MDiff Complete? YES; Mean Corpuscular HGB CONC 32.2 g/dL (32.0-36.0); Mean Corpuscular Hemoglobin 30.8 pg (27.0-31.0); Mean Corpuscular Volume 95.7 fL (78.0-98.0); Neutrophil 81 % (42-75); Nucleated RBC 1 % (0); PLT Morphology Comment Appears Increased; Platelet Count 428 thou/uL (130-400); Polychromasia SLIGHT = 2-3 cells (100X) (0-2/hpf); RBC Distribution Width 17.3 % (11.5-14.5); Red Blood Cell (RBC) Count 2.41 mill/uL (4.20-5.40); White Blood Cell (WBC) Count 5.3 thou/uL (4.8-10.8)
[2018-07-24] MEDS: D5 NS w/ 40 mEq KCl 1,000 ML IV SCH ×2 (06:04→17:39)
--- NOTE | 2018-07-24 07:40 | HP ---
DATE OF ADMISSION: 07/23/2018 PRIMARY CARE PHYSICIAN: Dr. Carolina. PRIMARY ONCOLOGIST: Dr. Ibarra. CHIEF COMPLAINT: Nausea and vomiting. HISTORY OF PRESENT ILLNESS: This is a 38-year-old -[place]ominican female with a history of invasive ductal left breast carcinoma on current chemotherapy completing her most recent session within the ast 3-5 days prior to this evaluation. Patient states she has had difficulty with persistent nausea and vomiting after each chemotherapy session. Patient takes multiple antiemetics at home with minima l relief. Patient admits to mainly dry heaves and states her last regular meal was approximately 4 d ays prior to this evaluation. Patient was recently admitted to [facility] from 06/25/2018 t o 06/26/2018 for chest pain, undergoing EGD evaluation showing Archana esophagitis, placed on IV and eventual oral fluconazole. Patient admits to increased fatigue. No specific documented fever, hemop tysis, or hematemesis. Patient admits to occasional diarrhea, but not consistently. Patient denied any dysuria, open sores, or skin wounds, or recent low blood sugar. Patient was referred to the [facility] oncology unit from Dr. Ibarra's office after presenting with persistent nausea, vomiting, and d ehydration. PAST MEDICAL HISTORY: 1. Invasive left breast ductal carcinoma with current chemotherapy. 2. Archana esophagitis, status post fluconazole therapy. 3. Diabetes mellitus, type 2, insulin-requiring. 4. Hypertension. 5. Anxiety/depression. 6. Morbid obesity. PAST SURGICAL HISTORY: 1. Status post breast biopsy. 2. Status post tubal ligation. 3. Status post wrist surgery. 4. Status post MediPort placement. 5. Status post removal of a submandibular gland tumor. CURRENT MEDICATIONS: Based on recent admission 06/2018, 1. Tylenol No.3 300 mg/30 mg 1 tab p.o. q.6 hours p.r.n. pain. 2. Alprazolam 1 mg p.o. b.i.d. 3. Amitriptyline 75 mg p.o. at bedtime. 4. Lipitor 80 mg p.o. at bedtime. 5. Carisoprodol 350 mg p.o. b.i.d. 6. Flexeril 10 mg p.o. at bedtime. 7. DiaBeta 5 mg 2 tabs p.o. daily. 8. Winfred 5/325 mg 1-2 tabs p.o. q.4 hours p.r.n. pain. 9. Levemir 40 units subcutaneously b.i.d. 10. Lisinopril/hydrochlorothiazide 10/12.5 mg 1 tab p.o. daily. 11. Reglan 10 mg p.o. q.6 hours p.r.n. 12. Zofran 4 mg ODT 1-2 tabs p.o. q.6 hours p.r.n. nausea, vomiting. 13. Phenergan 25 mg p.o. q.8 hours p.r.n. nausea, vomiting. 14. Fluconazole 200 mg p.o. daily. 15. Protonix 40 mg p.o. daily. ALLERGIES: No known drug allergies. FAMILY HISTORY: No inheritable diseases per patient report. SOCIAL HISTORY: No current alcohol, tobacco, or illicit drug use. Resides in [place], [place]. REVIEW OF SYSTEMS: The following complete review of systems was otherwise negative except as stated per HPI: Constitutional: Weight loss or gain, ability to conduct usual activities. Skin: Rash, it breanna. Eyes: Double vision, pain. ENT/Mouth: Nose bleeding, neck stiffness, pain, tenderness. Ca rdiovascular: Palpitations, dyspnea on exertion, orthopnea. Respiratory: Shortness of breath, whee zing, cough, hemoptysis, fever, or night sweats. Gastrointestinal: Poor appetite, abdominal pain, h eartburn, nausea, vomiting, constipation, or diarrhea. Genitourinary: Urgency, frequency, dysuria, nocturia. Musculoskeletal: Pain, swelling. Neurologic/Psychiatric: Anxiety, depression. Allergy/ Immunologic: Skin rash, bleeding tendency. PHYSICAL EXAMINATION: VITAL SIGNS: Currently blood pressure 146/66, pulse 84, respiratory rate 16, temperature 97.7 degree s Fahrenheit, O2 saturation 97% on room air. GENERAL APPEARANCE: This is a 38-year-old -Dominican female, alert and oriented x3. Active em esis in moderate distress. HEENT: Pupils are equal, round, and reactive to light and accommodation. Extraocular muscles are in tact. No scleral icterus, no conjunctival injection. Nares patent. OP is clear. Oral mucosa dry a ppearing. NECK: Supple. No cervical adenopathy, no thyromegaly, no carotid bruits, no JVD appreciated. Cervi radha spine with full active and passive range of motion. No meningeal signs appreciated. CHEST: Lungs are clear to auscultation bilaterally. CARDIOVASCULAR: S1, S2 without noted murmur, rub, or gallop. MediPort in place on the upper chest w all. ABDOMEN: Rounded, soft, nontender, nondistended. Bowel sounds are positive in all four quadrants. There is no hepatosplenomegaly, no abdominal bruits, no rebound or guarding appreciated. EXTREMITIES: Warm and dry with fair turgor. No clubbing, cyanosis, or asymmetric edema appreciated. Pulses palpable distally at the dorsalis pedis, posterior tibial, and popliteal arteries bilaterall y. Capillary refill less than 2 seconds. NEUROLOGIC: Cranial nerves II through XII are grossly intact. No focal or lateralizing signs apprec iated. PERTINENT LABORATORY DATA AND X-RAY FINDINGS: Reported from 07/16/2018, sodium 142, potassium 4.0, chloride 101, CO2 of 28, BUN 4, creatinine 0.72, estimated GFR greater than 90, glucose 189. Uric ac id level 4.5, calcium 9.0. LFTs within normal limits. Lactate dehydrogenase 308, albumin 3.8. CBC from 07/07/2018 showed a white blood cell count 3.3, hemoglobin 10, hematocrit 32, platelet count 395 with 87% neutrophilia. Left breast ultrasound dated 07/23/2018 showed enlarging left breast mass co nsistent with known history of left breast malignancy. CT of the chest, abdomen, and pelvis dated showed no evidence of intrathoracic metastatic process. Left breast mass noted consistent w [facility] prior malignancy history. ASSESSMENT AND PLAN: 1. Intractable nausea and vomiting. Patient will be admitted to the medical oncology unit. Suspect presentation consistent with chemotherapy exposure. We will continue IV fluids with D5 NS with 40 m Eq of KCl at 100 mL per hour. Continue Zofran 8 mg IV q.6 hours p.r.n. with additional Phenergan 25 mg IV q.6 hours p.r.n. Protonix 40 mg IV q.12 hours. Clear liquids as tolerated. 2. Dehydration secondary to #1. We will continue IV fluids as outlined in #1. Clear liquids as marco erated. Encourage free water intake as clinically tolerated. 3. Invasive ductal left breast carcinoma. Currently receiving chemotherapy. We will hold current c hemotherapy given patient's presentation. We will consult Medical Oncology Service for any further r ecommendations. 4. Diabetes mellitus, type 2, insulin-requiring. We will provide insulin sliding scale for reflexiv e coverage. Hold long-acting insulin due to inconsistent oral intake. Accu-Cheks a.c. and at bedtim e. 5. Hypertension. Hold antihypertensive regimen given patient's dehydration and persistent nausea an d vomiting. We will resume when patient clinically stabilizes. 6. Archana esophagitis. Status post fluconazole therapy x1 month. Supportive management. 7. Prophylaxis. Sequential compression devices while in bed. Protonix 40 mg IV q.12 hours. Spirit ual Care consult. Palliative Care consult. 8. Code status is FULL. Surrogate medical decision maker is patient's daughter.
[2018-07-24] MEDS: Pantoprazole 40 MG VIAL IVP SCH ×2 (07:58→20:35)
[2018-07-24] MEDS: ALPRAZolam 0.5 MG TAB PO SCH ×2 (07:59→20:37)
--- NOTE | 2018-07-24 10:41 | MRI ---
MRI BRAIN WITH AND WITHOUT CONTRAST: HISTORY: Breast cancer. Evaluate for metastases. COMPARISON: 10/11/2017 FINDINGS: No hemorrhage on the axial gradient echo sequence. No parenchymal mass, mass effect, or midline shift. Brain volume is age appropriate. Cortical rodriguez white matter differentiation is preserved. The ventricles and sulci are patent and symmetric. The calvarium has a normal T1 marrow signal intensity. The midline brain parenchymal structures are unremarkable. Central arterial flow voids are maintained. Absent restricted diffusion. No significant T2 or FLAIR white matter hyperintensities. Adequate aeration of the sinuses and mastoid air cells. No pathologic enhancement of the brain parenchyma. IMPRESSION: No MRI evidence of intracranial metastases. POS: MAYRA
--- NOTE | 2018-07-24 14:35 | PDOC.PN ---
- Subjective Encounter Start Date: 07/24/18 Encounter Start Time: 14:20 Subjective: f/u for intractable N/V after recent chemotx for breast carcinoma. -: Feels much better today and tolerated po intake. - Objective Resuscitation Status: Resuscitation Status FULL:Full Resuscitation MAR Reviewed: Yes Vital Signs & Weight: Vital Signs (12 hours) Temp Pulse Resp BP Pulse Ox 07/24/18 12:00 98.7 F 87 16 147/70 H 99 07/24/18 08:00 98.2 F 85 16 128/60 98 07/24/18 04:34 97.5 F L 81 18 117/64 95 Weight Admit Weight 189 lb Weight 189 lb I&O: 07/23/18 07/24/18 07/25/18 06:59 06:59 06:59 Intake Total 3050 Balance 3050 Result Diagrams: 07/24/18 04:45 07/24/18 04:45 Additional Labs: Accuchecks 07/24/18 07/24/18 07/23/18 12:27 05:20 20:57 POC Glucose 257 H 286 H 272 H 07/23/18 15:40 POC Glucose 204 H Laboratory Tests 06/24/18 07/07/18 07/24/18 18:50 12:57 04:45 Hgb 10.2 L 10.3 L Neutrophils % (Manual) 81 H Radiology Reviewed by me: Yes (MRI brain - no acute process) Phys Exam - Physical Examination Constitutional: NAD HEENT: PERRLA, sclera anicteric, oral pharynx no lesions Neck: no nodes, no JVD, supple, full ROM Respiratory: no wheezing, no rales, no rhonchi, clear to auscultation bilateral S1, S2 Cardiovascular: RRR, no significant murmur, no rub, gallop Gastrointestinal: soft, non-tender, no distention, positive bowel sounds Musculoskeletal: no edema, pulses present Neurological: normal sensation, moves all 4 limbs Psychiatric: normal affect, A&O x 3 Skin: normal turgor, cap refill <2 seconds Dx/Plan (1) Intractable nausea and vomiting Code(s): R11.2 - NAUSEA WITH VOMITING, UNSPECIFIED Status: Acute Comment: Secondary to chemotx and dehydration, improved with antiemetics and IVF's (2) Anemia of chronic disease Code(s): D63.8 - ANEMIA IN OTHER CHRONIC DISEASES CLASSIFIED ELSEWHERE Status : Chronic Comment: Suspect component of chemotherapy, serial H/H (3) Diabetes mellitus type 2 Code(s): E11.9 - TYPE 2 DIABETES MELLITUS WITHOUT COMPLICATIONS Status: Chronic Comment: Resume Glyburide, ISS, ADA (4) Ductal carcinoma of left breast Code(s): C50.912 - MALIGNANT NEOPLASM OF UNSPECIFIED SITE OF LEFT FEMALE BREAST Status: Chronic Comment: Currently tx with chemotx, Med Oncology consulted (5) Hypertension Code(s): I10 - ESSENTIAL (PRIMARY) HYPERTENSION Status: Chronic Qualifiers: Hypertension type: essential hypertension Qualified Code(s): I10 - Essential (primary) hypertension Comment: Resume home BP regimen, serial monitoring - Plan plan discussed w/ family, social media campaign manager, DVT proph w/SCDs Stable currently -: Continue IVF's -: Continue antiemetics -: NM bone scan today -: AM lab: CMP, CBC * .
--- NOTE | 2018-07-24 17:52 | NM ---
WHOLE BODY BONE SCAN: 07/24/18 HISTORY: 38-year-old female with left breast invasive ductal carcinoma. Status post removal of left submandibu lar gland tumor. RADIOPHARMACEUTICAL: 29 millicuries technetium 99m-MDP injected intravenously. FINDINGS: There is abnormal tracer localization in the patient's skeleton including the right side of the justin ble, right side of the maxilla and the left maxilla. There is contrast in the right sided Mediport. I ncreased uptake in the shoulders, sternoclavicular joints, elbows, wrists, and feet are consistent wi th degenerative changes. Tracer excretion of the kidneys is within normal limits. The right kidney i s in its expected location. A left pelvic kidney is present. IMPRESSION: No definite evidence of osseous metastatic disease. Findings in the patient's skeleton should be eval uated with CT scan. POS: MAYRA
[2018-07-24] MEDS: Cyclobenzaprine 10 MG TAB PO SCH (20:40)
[2018-07-25 05:20] LABS: ALT (SGPT) 25 U/L (8-55); AST (SGOT) 25 U/L (5-34); Albumin 2.8 g/dL (3.5-5.0); Alkaline Phosphatase 55 U/L (40-150); Anion Gap 11 mmol/L (10-20); BUN (Urea Nitrogen) Less than 4 mg/dL (7.0-18.7); Bilirubin, Total Less than 0.2 mg/dL (0.2-1.2); Calc. Creatinine Clearance 149 mL/min (70-130); Carbon Dioxide 22 mmol/L (22-29); Chloride 110 mmol/L (98-107); Estimated GFR-MDRD Greater than 90; Globulin 2.3 g/dL (2.4-3.5); Glucose 288 mg/dL (70-105); Potassium 3.8 mmol/L (3.5-5.1); Protein, Total 5.1 g/dL (6.0-8.3); Sodium 139 mmol/L (136-145)
[2018-07-25] MEDS: HumaLOG 300 UNITS/3 ML VIAL SC PRN ×2 (05:24→11:53)
[2018-07-25 05:49] LABS: Band 7 % (5-11); Eosinophils 1 % (0-10); Hemoglobin 7.8 g/dL (12.0-16.0); Lymphocytes 29 % (21-51); MDiff Complete? YES; Mean Corpuscular HGB CONC 31.5 g/dL (32.0-36.0); Mean Corpuscular Hemoglobin 30.7 pg (27.0-31.0); Mean Corpuscular Volume 97.5 fL (78.0-98.0); Mean Platelet Volume 7.3 fL (7.4-10.4); Metamyelocyte 1 % (0-0); Monocytes 6 % (0-10); Myelocyte 1 % (0-0); Neutrophil 55 % (42-75); Nucleated RBC 1 % (0); PLT Morphology Comment Appears Increased; Platelet Count 409 thou/uL (130-400); RBC Distribution Width 17.7 % (11.5-14.5); RBC Morphology Normal; Red Blood Cell (RBC) Count 2.53 mill/uL (4.20-5.40); White Blood Cell (WBC) Count 4.9 thou/uL (4.8-10.8)
[2018-07-25] MEDS: glyBURIDE 5 MG TAB PO SCH (07:23)
[2018-07-25] MEDS: Pantoprazole 40 MG VIAL IVP SCH ×2 (09:25→20:16)
[2018-07-25] MEDS: ALPRAZolam 0.5 MG TAB PO SCH ×2 (09:25→20:16)
--- NOTE | 2018-07-25 12:00 | PDOC.PN ---
- Subjective Encounter Start Date: 07/25/18 Encounter Start Time: 07:20 Pt seen for followup re: nausea and vomiting. Reports nausea and vomiting better. No fevers or chills. No abdo pain. - Objective Resuscitation Status: Resuscitation Status FULL:Full Resuscitation Vital Signs & Weight: Vital Signs (12 hours) Temp Pulse Resp BP Pulse Ox 07/25/18 08:00 98 07/25/18 07:28 98.7 F 93 16 133/60 98 07/25/18 07:26 98.7 F 90 16 133/60 98 Weight Admit Weight 189 lb Weight 189 lb I&O: 07/24/18 07/25/18 07/26/18 06:59 06:59 05:59 Intake Total 3050 3350 Balance 3050 3350 Result Diagrams: 07/25/18 04:44 07/25/18 04:44 Additional Labs: Accuchecks 07/25/18 07/25/18 07/24/18 11:02 05:13 19:21 POC Glucose 194 H 283 H 267 H 07/24/18 07/24/18 16:13 12:27 POC Glucose 229 H 257 H Phys Exam - Physical Examination Obese HEENT: moist MMs, sclera anicteric, oral pharynx no lesions, 2+ tonsils Neck: no nodes, no JVD, supple, full ROM Respiratory: no wheezing, no rales, no rhonchi, clear to auscultation bilateral Cardiovascular: RRR, no rub S1, S2 Gastrointestinal: soft, non-tender, no distention, positive bowel sounds Neurological: moves all 4 limbs Psychiatric: normal affect Deviation from normal: Oriented to person and place, not to time Dx/Plan (1) Intractable nausea and vomiting Code(s): R11.2 - NAUSEA WITH VOMITING, UNSPECIFIED Status: Acute Comment: Improveing, continue antiemetics (2) Diabetes mellitus type 2 Code(s): E11.9 - TYPE 2 DIABETES MELLITUS WITHOUT COMPLICATIONS Status: Chronic Comment: continue Glyburide, ISS, ADA (3) Ductal carcinoma of left breast Code(s): C50.912 - MALIGNANT NEOPLASM OF UNSPECIFIED SITE OF LEFT FEMALE BREAST Status: Chronic Comment: medical oncology following (4) Hypertension Code(s): I10 - ESSENTIAL (PRIMARY) HYPERTENSION Status: Chronic Qualifiers: Hypertension type: essential hypertension Qualified Code(s): I10 - Essential (primary) hypertension Comment: controlled - Plan * . Review of Systems - Review of Systems Constitutional: negative: fever, chills, sweats, weakness, malaise Respiratory: negative: Cough, Shortness of Breath, SOB with Excertion, Pleuritic Pain, Wheezing Cardiovascular: negative: chest pain, palpitations, orthopnea, paroxysmal nocturnal dyspnea, edema, light headedness Gastrointestinal: Nausea, Vomiting. negative: Abdominal Pain, Diarrhea, Constipation, Melena, Hematochezia Genitourinary: negative: Dysuria, Frequency, Incontinence, Hematuria, Retention Skin: negative: Rash, Lesions, Jack, Bruising - Medications/Allergies Allergies/Adverse Reactions: Allergies Allergy/AdvReac Type Severity Reaction Status Date / Time No Known Drug Allergies Allergy Verified 06/25/18 02:06 Medications: Current Medications Acetaminophen (Tylenol) 1,000 mg PO Q6H PRN PRN Reason: Mild Pain (1-3) Hydrocodone Bitart/Acetaminophen ([place] 5/325) 1 tab PO Q4H PRN PRN Reason: Moderate Pain (4-6) Hydrocodone Bitart/Acetaminophen ([place] 5/325) 2 tab PO Q4H PRN PRN Reason: Severe Pain (7-10) Last Admin: 07/24/18 16:35 Dose: 2 tab Alprazolam (Xanax) 1 mg PO BID [facility] Last Admin: 07/25/18 09:25 Dose: 1 mg Amitriptyline HCl (Elavil) 75 mg PO [facility] Last Admin: 07/24/18 20:38 Dose: 75 mg Carisoprodol (Soma) 350 mg PO BID [facility] Last Admin: 07/25/18 09:25 Dose: 350 mg Cyclobenzaprine HCl (Flexeril) 10 mg PO [facility] Last Admin: 07/24/18 20:40 Dose: 10 mg Dextrose/Water (Dextrose 50%) 25 gm SLOW IVP PRN PRN PRN Reason: Hypoglycemia Glucagon (Glucagon) 1 mg IM PRN PRN PRN Reason: Hypoglycemia Glyburide (Diabeta) 10 mg PO 0730 [facility] Last Admin: 07/25/18 07:23 Dose: 10 mg Hydralazine HCl (Apresoline) 10 mg SLOW IVP Q4H PRN PRN Reason: SBP > 180 and HR < 70 Dextrose/Water (D5w) 1,000 mls @ 0 mls/hr IV .Q0M PRN PRN Reason: Hypoglycemia Insulin Human Lispro (Humalog) 0 units SC .MILD SLIDING SCALE PRN PRN Reason: Mild Correctional Scale Last Admin: 07/25/18 11:53 Dose: 2 unit Insulin Human Lispro (Humalog) 0 units SC .BEDTIME SLIDING SC PRN PRN Reason: Bedtime Correctional Scale Last Admin: 07/24/18 20:44 Dose: 3 unit Metoclopramide HCl (Reglan) 10 mg IVP Q4H PRN PRN Reason: Nausea Last Admin: 07/23/18 20:09 Dose: 10 mg Morphine Sulfate (Morphine) 6 mg SLOW IVP Q4H PRN PRN Reason: Severe Pain (7-10) Last Admin: 07/23/18 12:49 Dose: 6 mg Ondansetron HCl (Zofran Odt) 8 mg PO Q6H PRN PRN Reason: Nausea/Vomiting Ondansetron HCl (Zofran) 8 mg IVP Q6H PRN PRN Reason: Nausea/Vomiting Last Admin: 07/23/18 20:27 Dose: 8 mg Pantoprazole Sodium (Protonix) 40 mg IVP BID [facility] Last Admin: 07/25/18 09:25 Dose: 40 mg Promethazine HCl (Phenergan) 25 mg IM/IV Q6H PRN PRN Reason: Nausea/Vomiting Sodium Chloride (Flush - Normal Saline) 10 ml IVF Q12HR [place] Last Admin: 07/25/18 11:54 Dose: 10 ml Sodium Chloride (Flush - Normal Saline) 10 ml IVF PRN PRN PRN Reason: Saline Flush Last Admin: 07/24/18 20:37 Dose: 10 ml
[2018-07-25] MEDS: Cyclobenzaprine 10 MG TAB PO SCH (20:16)
[2018-07-26 05:20] LABS: #Eosinphils 0.1 thou/uL (0.0-0.7); #Lymphocytes 0.9 thou/uL (1.20-3.40); #Monocytes 0.5 thou/uL (0.11-0.59); #Neutrophils 2.7 thou/uL (1.40-6.50); %Basophils 0.3 % (0.0-1.0); %Eosinophils 1.8 % (0.0-10.0); %Lymphocytes 20.7 % (21.0-51.0); %Monocytes 12.3 % (0.0-10.0); %Neutrophils 64.8 % (42.0-75.0); Hemoglobin 8.1 g/dL (12.0-16.0); Mean Corpuscular HGB CONC 31.1 g/dL (32.0-36.0); Mean Corpuscular Hemoglobin 30.2 pg (27.0-31.0); Mean Corpuscular Volume 97.2 fL (78.0-98.0); Mean Platelet Volume 7.1 fL (7.4-10.4); Platelet Count 392 thou/uL (130-400); RBC Distribution Width 17.8 % (11.5-14.5); Red Blood Cell (RBC) Count 2.68 mill/uL (4.20-5.40); White Blood Cell (WBC) Count 4.2 thou/uL (4.8-10.8)
[2018-07-26 05:37] LABS: Anion Gap 11 mmol/L (10-20); BUN (Urea Nitrogen) Less than 4 mg/dL (7.0-18.7); Calc. Creatinine Clearance 149 mL/min (70-130); Calcium 8.4 mg/dL (7.8-10.44); Carbon Dioxide 26 mmol/L (22-29); Chloride 108 mmol/L (98-107); Estimated GFR-MDRD Greater than 90; Glucose 241 mg/dL (70-105); Potassium 3.6 mmol/L (3.5-5.1); Sodium 141 mmol/L (136-145)
[2018-07-26] MEDS: HumaLOG 300 UNITS/3 ML VIAL SC PRN (05:56)
[2018-07-26] MEDS: glyBURIDE 5 MG TAB PO SCH (07:49)
[2018-07-26] MEDS: ALPRAZolam 0.5 MG TAB PO SCH (07:49)
[2018-07-26] MEDS: Pantoprazole 40 MG VIAL IVP SCH (07:49)
[2018-07-26 08:26] VITALS: BP 142/68; TEMP 98.8
--- NOTE | 2018-07-26 18:15 | DIS ---
DATE OF ADMISSION: 07/23/2018 DATE OF DISCHARGE: 07/26/2018 PRIMARY CARE PROVIDER: Yogi Carolina MD ADMITTING DIAGNOSES: 1. Dehydration. 2. Nausea and vomiting. CONDITION OF PATIENT ON THE DAY OF DISCHARGE: Stable. I assessed Ms. Grey on the day of discharge. She denies any chest pain or shortness of breath. OBJECTIVE: VITAL SIGNS: Stable. HEART: S1 and S2 are heard, regular. LUNGS: Clear to auscultation bilaterally. DISCHARGE MEDICATIONS: No change was made to patient's preadmission home medications as dictated in the history and physical note, dated July 23, 2018, by Dr. Barger. HOSPITAL COURSE: Ms. Grey is a pleasant 38-year-old lady who was admitted to [facility] on July 23, 2018, for nausea, vomiting, dehydration from Oncology office. She was harinder ated with antiemetics. She received intravenous fluids. She improved clinically. She is being disc harged home in a stable condition. Her symptoms were mainly secondary to recent chemotherapy for josh ast cancer. On the day of discharge, she has white count of 4200, hemoglobin 8.1, platelet count 392,000. Sodium 141, potassium 3.6, and creatinine 0.68. Many thanks for allowing me to participate in your patient's care. Please feel free to contact me wi th any questions or concerns. DISCHARGE DESTINATION: Home. TOTAL AMOUNT OF TIME SPENT COORDINATING THIS DISCHARGE: 31 minutes.
--- NOTE | 2018-07-27 09:09 | CON ---
DATE OF CONSULTATION: 07/24/2018 REASON FOR CONSULTATION: Breast cancer. HISTORY OF PRESENT ILLNESS: Ms. Grey is a pleasant 38-year-old female with triple negative, grade III invasive ductal carcinoma of the left breast. She is staged 2 BRCA negative. Boone martínez completed 4 cycles of dose dense chemotherapy with Adriamycin, Cytoxan and is currently on weekly T axol. She presented to the clinic on 07/23/2018 with complaints of moderate to severe pain in her le ft anterior chest with nausea, vomiting, and headache starting 2 days ago. She had tenderness over h er left costochondral area. The mass in the left breast measured 4 cm x 5 cm showing a definite incr ease. She was admitted for further evaluation and treatment. She had MRI of the brain which was neg ative for metastatic disease. Her breast ultrasound showed an increase in the size of her mass from 2.4 cm to now 4.[address] of the chest, abdomen, and pelvis showed no evidence of intrathoracic metas tatic disease. Bone scan is pending. She has been treated with antiemetics and IV fluids and is fee ling better. She continues to have this chest wall pain. PAST MEDICAL HISTORY: 1. Stage II triple negative invasive ductal carcinoma of the left breast with progression. 2. Hypertension. 3. Diabetes. 4. Hyperlipidemia. 5. Anxiety and depression. PAST SURGICAL HISTORY: Tubal ligation, cataract surgery. ALLERGIES: No known drug allergies. HOME MEDICATIONS: 1. Tylenol #3 p.r.n. 2. Alprazolam b.i.d. 3. Elavil daily. 4. Atorvastatin daily. 5. Carisoprodol 350 mg b.i.d. 6. DiaBeta daily. 7. Hemphill p.r.n. 8. Insulin b.i.d. 9. Reglan p.r.n. 10. Protonix 40 mg daily. FAMILY HISTORY: Mother had stomach cancer. SOCIAL HISTORY: Single, has 3 children, lives with her children. Current everyday smoker, a pack a day, 15-year history, social drinker. No illicit drug use. REVIEW OF SYSTEMS: A 12-point review of systems is negative except for noted in HPI. PHYSICAL EXAMINATION: VITAL SIGNS: Temperature is 98.7, pulse is 87, respiratory rate 16, BP is 147/70, she is 99% on room air. GENERAL: Well-developed, well-nourished female in no acute distress. HEENT: Normocephalic, atraumatic. Pupils equal and reactive to light. She has alopecia. NECK: Supple. CARDIOVASCULAR: Regular rate and rhythm. LUNGS: Clear. ABDOMEN: Soft, nontender, bowel sounds are positive. EXTREMITIES: No clubbing, cyanosis or edema. SKIN: No rash. HEMATOLOGIC: No petechia or purpura. NEUROLOGICAL: Nonfocal. BREASTS: She has a palpable mass in the 12 o'clock position of her left breast. Focal tenderness wi th palpation under her breast. PERTINENT LABORATORY DATA AND IMAGING DATA: Current WBCs 5.3, hemoglobin 7.4, hematocrit 23, platele t count 428,000. She has got 81% neutrophils, 1% bands, 18% lymphocytes. Sodium is 138, potassium 3 .9, chloride 110, CO2 is 25, BUN is less than 4, creatinine 0.67, calcium 7.7, bilirubin less than 2, AST is 23, ALT is 23, alkaline phosphatase is 53, serum total protein 5.1, albumin 2.8, globulin 2.3 . Radiology per HPI. IMPRESSION: 1. Triple negative breast cancer with completion of dose dense chemotherapy, now with progression. 2. Left chest wall pain. 3. Intractable nausea and vomiting, now resolved. DISCUSSION: The patient has been on IV fluids. We will continue antiemetics. Her bone scan is pend ing. We will provide supportive care. She will need alteration in her treatment plan. She will fol low up in the outpatient setting to discuss further with Dr. Ibarra. Thank you for the consult. We will follow her hospital course.
== END 2018-07-26 11:51 | disposition home or self-care (01) | DRG 392 ==
LOC: ONC 11:07
PROVIDERS: ADMIT Internal Medicine Infectious Disease; ATTEND Internal Medicine Infectious Disease
DX: R11.2 Nausea with vomiting, unspecified (principal); B37.81 Candidal esophagitis; T45.1X5A Adverse effect of antineoplastic and immunosuppressive drugs, initial encounter; E86.0 Dehydration; C50.912 Malignant neoplasm of unspecified site of left female breast; I10 Essential (primary) hypertension; E11.9 Type 2 diabetes mellitus without complications; E78.5 Hyperlipidemia, unspecified; F41.9 Anxiety disorder, unspecified; F32.9 Major depressive disorder, single episode, unspecified; F17.210 Nicotine dependence, cigarettes, uncomplicated; R07.89 Other chest pain; R51 Headache; D64.81 Anemia due to antineoplastic chemotherapy; D63.0 Anemia in neoplastic disease; E66.01 Morbid (severe) obesity due to excess calories; Z68.32 Body mass index [BMI] 32.0-32.9, adult
CPT/HCPCS: 36415; 36416; 70553; 71260; 74177; 78306; 80048; 80053; 85007; 85025; 85027; A9503; C9113; J2060; J2270; J2405; J2765

== ENCOUNTER 2018-08-27 09:11 | Day surgery (SDC) | payer OTHER ==
[2018-08-27] MEDS ORDERED: Sodium Chloride 0.9% 30 ML ONE (09:31)
[2018-08-27] MEDS ORDERED: DOCETAXEL IVPB SCH ×2 (09:45→10:00)
[2018-08-27] MEDS ORDERED: Ondansetron PF 4 MG/2 ML Vial SLOW IVP SCH (09:45)
[2018-08-27] MEDS ORDERED: SODIUM CHLORIDE 0.9% IVPB SCH ×2 (09:45→10:00)
[2018-08-27] MEDS ORDERED: Dexamethasone 10 MG/ML VIAL SLOW IVP SCH (09:45)
[2018-08-27 09:58] VITALS: BP 144/82; TEMP 97.4
== END 2018-08-27 17:59 | disposition home or self-care (01) ==
LOC: ONC/OP 09:11
PROVIDERS: ATTEND Internal Medicine Medical Oncology
DX: Z51.11 Encounter for antineoplastic chemotherapy (principal); C50.812 Malignant neoplasm of overlapping sites of left female breast
CPT/HCPCS: 96375; 96413; J1100; J1642; J2405; J7050; J9171

== ENCOUNTER → 2018-09-17 | Day surgery (SDC) | payer OTHER ==
[~2018-09-17] MED LIST: DOCETAXEL IVPB SCH; Dexamethasone 10 MG/ML VIAL SLOW IVP SCH; Ondansetron PF 4 MG/2 ML Vial SLOW IVP SCH; SODIUM CHLORIDE 0.9% IVPB SCH; Sodium Chloride 0.9% 20 ML ONE
== END ==
LOC: ONC/OP 12:21
PROVIDERS: ATTEND Internal Medicine Medical Oncology
DX: Z51.11 Encounter for antineoplastic chemotherapy (principal); C50.812 Malignant neoplasm of overlapping sites of left female breast; I10 Essential (primary) hypertension; E11.9 Type 2 diabetes mellitus without complications; F17.200 Nicotine dependence, unspecified, uncomplicated; E78.5 Hyperlipidemia, unspecified; Z79.899 Other long term (current) drug therapy; Z79.02 Long term (current) use of antithrombotics/antiplatelets
CPT/HCPCS: 96375; 96413; J1100; J1642; J2405; J7050; J9171

== ENCOUNTER 2018-10-29 09:22 | Outpatient (CLI) | payer OTHER ==
--- NOTE | 2018-10-29 11:00 | ULT ---
LEFT BREAST ULTRASOUND: COMPARISON: 07/23/2018. HISTORY: Left breast cancer at the 12 o'clock position of the left breast on chemotherapy. Evaluate for size of the mass compared to the prior examination. TECHNIQUE: Multiplanar, rodriguez scale, and color Doppler images were obtained in a ___ left breast at the 12 o'cloc k position. FINDINGS: There is a hypoechoic lobulated mass at the 12 o'clock position of the left breast. This has enlarge d compared to the prior examination and now measures 4.9 x 3.0 x 2.8 cm in size. IMPRESSION: Enlargement of left breast mass which represents the patient's malignancy. BIRADS category 6 - known malignancy. Appropriate action should be taken. POS: MAYRA
== END 2018-10-29 09:23 | disposition home or self-care (01) ==
LOC: BICULT 09:22
PROVIDERS: ATTEND Internal Medicine Medical Oncology
DX: C50.812 Malignant neoplasm of overlapping sites of left female breast (principal)

== ENCOUNTER 2018-11-09 07:29 | Outpatient (CLI) | payer OTHER ==
[2018-11-09 13:32] LABS: #Eosinphils 0.2 thou/uL (0.0-0.7); #Lymphocytes 1.8 thou/uL (1.20-3.40); #Monocytes 0.6 thou/uL (0.11-0.59); #Neutrophils 6.4 thou/uL (1.40-6.50); %Basophils 0.2 % (0.0-1.0); %Eosinophils 1.9 % (0.0-10.0); %Monocytes 6.4 % (0.0-10.0); %Neutrophils 71.6 % (42.0-75.0); Hemoglobin 12.4 g/dL (12.0-16.0); Mean Corpuscular HGB CONC 32.1 g/dL (32.0-36.0); Mean Corpuscular Hemoglobin 29.9 pg (27.0-31.0); Mean Corpuscular Volume 93.2 fL (78.0-98.0); Mean Platelet Volume 7.9 fL (7.4-10.4); Platelet Count 357 thou/uL (130-400); RBC Distribution Width 14.6 % (11.5-14.5); Red Blood Cell (RBC) Count 4.16 mill/uL (4.20-5.40)
[2018-11-09 13:59] LABS: Anion Gap 16 mmol/L (10-20); BUN (Urea Nitrogen) 5 mg/dL (7.0-18.7); Calc. Creatinine Clearance 0 mL/min (70-130); Calcium 9.9 mg/dL (7.8-10.44); Carbon Dioxide 23 mmol/L (22-29); Chloride 100 mmol/L (98-107); Estimated GFR-MDRD 85; Glucose 432 mg/dL (70-105); Potassium 3.9 mmol/L (3.5-5.1); Sodium 135 mmol/L (136-145)
--- NOTE | 2018-11-10 07:46 | EKG ---
Test Reason : Blood Pressure : / mmHG Vent. Rate : 114 BPM Atrial Rate : 114 BPM P-R Int : 140 ms QRS Dur : 086 ms QT Int : 370 ms P-R-T Axes : 068 084 066 degrees QTc Int : 509 ms Sinus tachycardia Nonspecific T wave abnormality Abnormal ECG When compared with ECG of 24-JUN-2018 22:52, Nonspecific T wave abnormality, improved in Anterior leads Confirmed by BOSSMAN ROLON ([id number]) on 11/10/2018 7:46:10 AM Referred By: JAYCEE Confirmed By:BOSSMAN ROLON
== END 2018-11-09 07:30 | disposition home or self-care (01) ==
LOC: LABBT 07:29
PROVIDERS: ATTEND Surgery
DX: Z01.818 Encounter for other preprocedural examination (principal); C50.912 Malignant neoplasm of unspecified site of left female breast
CPT/HCPCS: 80048; 85025; 93005; 93010

== ENCOUNTER 2018-11-17 09:37 | Inpatient (IN) | payer OTHER ==
[2018-11-17] MEDS ORDERED: Fentanyl 100 MCG/2 ML VIAL ONE ×2 (11:21→14:05)
[2018-11-17] MEDS ORDERED: Midazolam HCl 2 mg/2 ml Vial ONE (11:21)
--- NOTE | 2018-11-17 11:59 | NM ---
LYMPHOSCINTIGRAPHY LEFT BREAST: Date: 11/17/18 HISTORY: Left breast cancer. FINDINGS: After explaining the procedure and answering all questions, the anterior periareolar aspect of the le ft breast was cleaned. Careful clean technique was then used to inject in four equal aliquots a total volume of 1 mL liquid containing 420 microcuries technetium-99m filtered sulfur colloid into the ski n at the 12, 3, 6, and 9 o'clock periareolar positions of the left breast. The injection sites were c arefully massed by the patient and imaging was performed. Immediate imaging shows uptake of radiotracer at the axillary tail of the left breast. The skin overlying the sentinel lymph node was marked and the patient was sent to day surgery. The pa tient tolerated the procedure well. IMPRESSION: Technically successful lymphoscintigraphy left breast, revealing sentinel lymph node at the axillary tail. POS: MAYRA
[2018-11-17] MEDS ORDERED: Morphine Sulfate 2 MG/ML SYRINGE SLOW IVP PRN (14:01)
[2018-11-17] MEDS ORDERED: Ondansetron HCl/PF 4 MG/2 ML Vial IVP PRN (14:01)
[2018-11-17] MEDS ORDERED: Non-Formulary Medication 1 EACH PO PRN (14:01)
[2018-11-17] MEDS ORDERED: Promethazine HCl 25 MG/ML VIAL IM/IV PRN (14:01)
[2018-11-17] MEDS ORDERED: Morphine 4 MG/ML VIAL ONE (14:36)
[2018-11-17] MEDS ORDERED: Rocuronium Bromide 10 MG/ML (10ML VIAL) ONE (15:09)
[2018-11-17] MEDS ORDERED: Ondansetron PF 4 MG/2 ML Vial ONE (15:09)
[2018-11-17] MEDS ORDERED: Ketorolac Tromethamine 30 MG/ML VIAL ONE (15:09)
[2018-11-17] MEDS ORDERED: Dexamethasone 20 MG/5 ML VIAL ONE (15:09)
[2018-11-17] MEDS ORDERED: PROPOFOL 200 MG/20 ML VIAL ONE (15:09)
[2018-11-17] MEDS ORDERED: Glycopyrrolate 0.2 MG/ML 5 ML SYRINGE ONE (15:09)
[2018-11-17] MEDS ORDERED: Lidocaine 1% PF 5 ML VIAL ONE (15:09)
[2018-11-17] MEDS ORDERED: Esmolol 100 MG/10 ML VIAL ONE (15:09)
[2018-11-17] MEDS ORDERED: Morphine 2 MG/ML SYRINGE ONE (15:17)
[2018-11-17] MEDS ORDERED: Promethazine HCl 25 MG/ML VIAL IM PRN (15:48)
[2018-11-17] MEDS ORDERED: Lorazepam 1 MG TAB PO PRN (15:48)
[2018-11-17] MEDS ORDERED: ALPRAZolam 1 MG TAB PO PRN (15:48)
[2018-11-17] MEDS ORDERED: hydrALAZINE 20 MG/ML VIAL SLOW IVP PRN (15:48)
[2018-11-17] MEDS ORDERED: Dextrose 50% Abboject 50 ML SYRINGE SLOW IVP PRN ×2 (15:48)
[2018-11-17] MEDS ORDERED: Dextrose 5% in Water 1,000 ML IV PRN (15:48)
[2018-11-17] MEDS ORDERED: HYDROcodone/Acetaminophen 10/325 mg Tablet PO PRN (15:48)
[2018-11-17] MEDS ORDERED: Morphine 4 MG/ML VIAL SLOW IVP PRN ×2 (15:48)
[2018-11-17] MEDS ORDERED: Ondansetron PF 4 MG/2 ML Vial IVP PRN (15:48)
[2018-11-17 16:15] VITALS: BMI 34.0
[2018-11-17] MEDS: Lactated Ringer's 1,000 ML IV SCH (16:46)
[2018-11-17] MEDS: HumaLOG 300 UNITS/3 ML VIAL SC PRN ×2 (16:57→20:47)
[2018-11-17] MEDS: Docusate 100 MG CAP PO SCH (20:45)
[2018-11-17] MEDS: Famotidine 20 MG TAB PO SCH (20:45)
[2018-11-17] MEDS: HYDROcodone/Acetaminophen 10/325 mg Tablet PO PRN (20:55)
[2018-11-18] MEDS: HYDROcodone/Acetaminophen 10/325 mg Tablet PO PRN ×3 (03:58→21:14)
[2018-11-18 05:21] LABS: #Lymphocytes 1.9 thou/uL (1.20-3.40); #Monocytes 0.6 thou/uL (0.11-0.59); #Neutrophils 7.4 thou/uL (1.40-6.50); %Basophils 0.2 % (0.0-1.0); %Eosinophils 0.4 % (0.0-10.0); %Lymphocytes 18.6 % (21.0-51.0); %Monocytes 6.4 % (0.0-10.0); %Neutrophils 74.4 % (42.0-75.0); Hemoglobin 8.8 g/dL (12.0-16.0); Mean Corpuscular HGB CONC 31.8 g/dL (32.0-36.0); Mean Corpuscular Hemoglobin 29.7 pg (27.0-31.0); Mean Corpuscular Volume 93.4 fL (78.0-98.0); Mean Platelet Volume 8.1 fL (7.4-10.4); Platelet Count 255 thou/uL (130-400); RBC Distribution Width 13.8 % (11.5-14.5); Red Blood Cell (RBC) Count 2.98 mill/uL (4.20-5.40)
[2018-11-18] MEDS: Lactated Ringer's 1,000 ML IV SCH (05:30)
[2018-11-18 05:44] LABS: Anion Gap 9 mmol/L (10-20); BUN (Urea Nitrogen) 7 mg/dL (7.0-18.7); Calc. Creatinine Clearance 141 mL/min (70-130); Calcium 8.7 mg/dL (7.8-10.44); Carbon Dioxide 29 mmol/L (22-29); Chloride 101 mmol/L (98-107); Estimated GFR-MDRD Greater than 90; Glucose 364 mg/dL (70-105); Potassium 4.2 mmol/L (3.5-5.1); Sodium 135 mmol/L (136-145)
[2018-11-18] MEDS: HumaLOG 300 UNITS/3 ML VIAL SC PRN ×3 (05:51→17:08)
[2018-11-18] MEDS: Docusate 100 MG CAP PO SCH ×2 (09:15→21:14)
[2018-11-18] MEDS: Lisinopril/Hydrochlorothiazide 10 mg/12.5 mg Tablet PO SCH (09:16)
[2018-11-18] MEDS: Famotidine 20 MG TAB PO SCH ×2 (09:16→21:14)
[2018-11-18] MEDS: glyBURIDE 5 MG TAB PO SCH ×2 (11:14→17:07)
--- NOTE | 2018-11-18 14:59 | PDOC.GSPN ---
Surgery Progress Note: Subj - Subjective Narrative: She has pain that is improved this afternoon but still needs IV pain medicine./ Surgery Progress Note: Obj - Vital signs Vital signs: Vital Signs - Most Recent Temp Pulse Resp BP Pulse Ox 97.8 F 110 H 16 117/79 96 11/18/18 11:10 11/18/18 11:10 11/18/18 11:10 11/18/18 11:10 11/18/18 11:10 - Physical Exam General: no distress Cardiovascular: regular rate and rhythm Respiratory: clear to auscultation Wound: healing well (CARMEN drains sanguenous) Surgery Progress Note: Results - Labs Result Diagrams: 11/18/18 05:03 11/18/18 05:03 Lab results: Laboratory Results - last 24 hr 11/18/18 11/18/18 11/18/18 05:03 05:03 11:11 WBC 10.0 RBC 2.98 L Hgb 8.8 L Hct 27.8 L MCV 93.4 MCH 29.7 MCHC 31.8 L RDW 13.8 Plt Count 255 MPV 8.1 Neutrophils % 74.4 Lymphocytes % 18.6 L Monocytes % 6.4 Eosinophils % 0.4 Basophils % 0.2 Neutrophils # 7.4 H Lymphocytes # 1.9 Monocytes # 0.6 H Eosinophils # 0.0 Basophils # 0.0 Sodium 135 L Potassium 4.2 Chloride 101 Carbon Dioxide 29 Anion Gap 9 L BUN 7 Creatinine 0.75 Estimated GFR (MDRD) Greater than 90 Glucose 364 H POC Glucose 276 H Calcium 8.7 Surgery Progress Note: A/P - Problem (1) Breast cancer Current Visit: Yes Status: Acute - Plan Plan: Likely home tomorrow -already called in [place] to her pharmacy in [place]
[2018-11-18] MEDS ORDERED: Non-Formulary Item 1 EACH (Insulin Detemir 100 Units/Ml [Levemir] 40 UNIT) SQ SCH (21:00)
[2018-11-18] MEDS: Insulin Glargine 40 UNITS in Pre-Filled Syringe 1 EACH SC SCH (21:15)
[2018-11-19 06:17] LABS: Hemoglobin 8.6 g/dL (12.0-16.0)
[2018-11-19] MEDS: HYDROcodone/Acetaminophen 10/325 mg Tablet PO PRN (06:42)
[2018-11-19] MEDS: glyBURIDE 5 MG TAB PO SCH ×3 (06:43→17:51)
[2018-11-19] MEDS: HumaLOG 300 UNITS/3 ML VIAL SC PRN (06:44)
[2018-11-19] MEDS: Docusate 100 MG CAP PO SCH (08:48)
[2018-11-19] MEDS: Famotidine 20 MG TAB PO SCH (08:48)
[2018-11-19] MEDS: Lisinopril/Hydrochlorothiazide 10 mg/12.5 mg Tablet PO SCH (10:10)
[2018-11-19 11:44] VITALS: BP 116/78; TEMP 97.7
[2018-11-19] MEDS: Insulin Glargine 40 UNITS in Pre-Filled Syringe 1 EACH SC SCH (12:48)
--- NOTE | 2018-11-19 14:38 | DIS ---
DATE OF ADMISSION: 11/17/2018 DATE OF DISCHARGE: 11/19/2018 ADMIT DIAGNOSIS: Left breast cancer, locally invasive. DISCHARGE DIAGNOSIS: Left breast cancer, locally invasive. PROCEDURES: Left mastectomy, sentinel node biopsy by Dr. Agosto without complication. CONDITION ON DISCHARGE: Improved. STAFF: Dr. Agosto. HOSPITAL COURSE: On postop day #2, the patient is doing well. Her pain is controlled. Her drain output is less. Her hemoglobin and hematocrit are stable. She is discharged home. Hydrocodone already sent to her pharmacy in [place]. She will follow up with me in 1 week for possible drain removal. Instruction on drain care has already been performed. Job ID: [id number]
--- NOTE | 2018-11-20 12:51 | OP ---
DATE OF PROCEDURE: 11/17/2018 PREOPERATIVE DIAGNOSIS: Locally invasive left breast cancer, status post neoadjuvant chemotherapy. POSTOPERATIVE DIAGNOSIS: Locally invasive left breast cancer, status post neoadjuvant chemotherapy. PROCEDURES PERFORMED: 1. Left simple mastectomy. 2. Left deep axillary node after sentinel node protocol. ANESTHESIA: General. ESTIMATED BLOOD LOSS: Minimal. COMPLICATIONS: None. SPECIMEN: Left breast marked with two short superior, one long lateral, sent to Path for final diagnosis. Jefferson node, sent to Path for final diagnosis. DESCRIPTION OF PROCEDURE: The patient was taken to the operating room and laid supine on the operating room table. After general anesthetic was obtained, her bilateral chest, breast, arm, axilla as all prepped and draped in a sterile fashion. An elliptical incision was used to ellipse out nipple-areolar complex. The incision extends from medial chest. Skin incision was carried out over the top of the palpable mass in the left upper outer quadrant of the left breast. Flaps were raised superior to the clavicle, medial to the sternum, inferior to inframammary fold and laterally to the latissimus dorsi muscle. The breast and pectoralis fascia were taken off the muscle in a medial to lateral rotation using cautery. Meticulous hemostasis was obtained. The breast specimen was marked with two short superior, one long lateral, sent to Path for final diagnosis. Jefferson node protocol and the Neoprobe was used to find the area of increased uptake. Methylene blue dye had been infiltrated under the nipple prior to the procedure as well as a radial labeled sulfur colloid. Jefferson nodes were found, background counts dropped to near zero. Jefferson nodes were sent to Path for final diagnosis. The wound was irrigated using sterile water. Again, no bleeding is present. The two round 19 drains were brought out through separate stab incision, sewn in place using silk. The wound was closed using 3-0 Vicryl, 4-0 Monocryl, and Dermabond. Dressings were placed at the drain exit sites. The patient was sent to Recovery in stable condition. All instrument counts, needle counts, and lap counts were correct. Job ID: [id number]
== END 2018-11-19 15:15 | disposition home or self-care (01) | DRG 581 ==
LOC: SDC 09:37 → SURG A 14:51
PROVIDERS: ADMIT Surgery; ATTEND Surgery
PROC: 0HTU0ZZ Resection of Left Breast, Open Approach (ICD-10-PCS; principal; 2018-11-17)
PROC: 07B60ZX Excision of Left Axillary Lymphatic, Open Approach, Diagnostic (ICD-10-PCS; 2018-11-17)
DX: C50.912 Malignant neoplasm of unspecified site of left female breast (principal); Z92.21 Personal history of antineoplastic chemotherapy
CPT/HCPCS: 36415; 36416; 78195; 80048; 85014; 85018; 85025; 88307; 88342; A9541; J1100; J1825; J1885; J2001; J2250; J2270; J2405; J2704; J3010; Q9968

== ENCOUNTER 2018-11-29 12:20 | Emergency (ER) | payer OTHER ==
--- NOTE | 2018-11-29 13:42 | CT ---
CT OF THE BRAIN WITHOUT CONTRAST: COMPARISON: 06/07/2018. MRI of the brain 07/24/2018. HISTORY: Numbness on the left side. The patient has had a recent mastectomy for breast cancer. TECHNIQUE: Multiple contiguous axial images were obtained in a CT of the brain without contrast. FINDINGS: The brain is normal in morphology and attenuation without focal lesions or confluent areas of infarct ion. There is no evidence of hydrocephalus, intracranial hemorrhage, or extraaxial fluid collection. The calvarium and overlying soft tissues are unremarkable. The visualized paranasal sinuses and mast oid air cells are well aerated. IMPRESSION: No evidence of acute intracranial abnormality. POS: MAYRA
[2018-11-29 14:01] LABS: #Lymphocytes 1.9 thou/uL (1.20-3.40); #Monocytes 1.1 thou/uL (0.11-0.59); #Neutrophils 13.8 thou/uL (1.40-6.50); %Eosinophils 0.2 % (0.0-10.0); %Lymphocytes 11.1 % (21.0-51.0); %Monocytes 6.4 % (0.0-10.0); %Neutrophils 82.4 % (42.0-75.0); Hemoglobin 10.5 g/dL (12.0-16.0); Mean Corpuscular HGB CONC 31.6 g/dL (32.0-36.0); Mean Corpuscular Hemoglobin 28.9 pg (27.0-31.0); Mean Corpuscular Volume 91.3 fL (78.0-98.0); Mean Platelet Volume 6.9 fL (7.4-10.4); Platelet Count 555 thou/uL (130-400); RBC Distribution Width 14.1 % (11.5-14.5); Red Blood Cell (RBC) Count 3.65 mill/uL (4.20-5.40); White Blood Cell (WBC) Count 16.8 thou/uL (4.8-10.8)
[2018-11-29 14:22] LABS: ALT (SGPT) 14 U/L (8-55); AST (SGOT) 12 U/L (5-34); Albumin 3.7 g/dL (3.5-5.0); Alkaline Phosphatase 87 U/L (40-150); Anion Gap 16 mmol/L (10-20); BUN (Urea Nitrogen) 7 mg/dL (7.0-18.7); Bilirubin, Total 0.6 mg/dL (0.2-1.2); Calc. Creatinine Clearance 0 mL/min (70-130); Calcium 9.3 mg/dL (7.8-10.44); Carbon Dioxide 23 mmol/L (22-29); Chloride 100 mmol/L (98-107); Estimated GFR-MDRD Greater than 90; Globulin 3.1 g/dL (2.4-3.5); Glucose 330 mg/dL (70-105); Potassium 4.5 mmol/L (3.5-5.1); Protein, Total 6.8 g/dL (6.0-8.3); Sodium 134 mmol/L (136-145)
== END 2018-11-29 17:10 | disposition home or self-care (01) ==
LOC: ERS 12:20
DX: G89.18 Other acute postprocedural pain (principal); R20.2 Paresthesia of skin; E11.9 Type 2 diabetes mellitus without complications; F17.210 Nicotine dependence, cigarettes, uncomplicated; F32.9 Major depressive disorder, single episode, unspecified
CPT/HCPCS: 36415; 70450; 80053; 84484; 85025; 93005

== ENCOUNTER 2018-12-01 14:26 | Inpatient (IN) | payer OTHER ==
[2018-12-01 15:29] LABS: #Eosinphils 0.1 thou/uL (0.0-0.7); #Lymphocytes 1.1 thou/uL (1.20-3.40); #Monocytes 0.6 thou/uL (0.11-0.59); #Neutrophils 3.6 thou/uL (1.40-6.50); %Basophils 0.5 % (0.0-1.0); %Eosinophils 1.2 % (0.0-10.0); %Lymphocytes 20.7 % (21.0-51.0); %Monocytes 10.4 % (0.0-10.0); %Neutrophils 67.3 % (42.0-75.0); Hemoglobin 9.3 g/dL (12.0-16.0); Mean Corpuscular HGB CONC 30.9 g/dL (32.0-36.0); Mean Corpuscular Hemoglobin 28.4 pg (27.0-31.0); Mean Corpuscular Volume 91.9 fL (78.0-98.0); Mean Platelet Volume 7.2 fL (7.4-10.4); Platelet Count 440 thou/uL (130-400); RBC Distribution Width 13.6 % (11.5-14.5); Red Blood Cell (RBC) Count 3.28 mill/uL (4.20-5.40); White Blood Cell (WBC) Count 5.4 thou/uL (4.8-10.8)
[2018-12-01] MEDS ORDERED: Morphine 4 MG/ML VIAL ONE (16:23)
--- NOTE | 2018-12-01 17:24 | ULT ---
ULTRASOUND SOFT TISSUE OTHER 12/01/18 HISTORY: Recent mastectomy. Pain. COMPARISON: CT chest prior day. FINDINGS: There are two separate fluid collections. The one inferior to the drainage catheter is a simple colle ction. This is felt to be the one that contains gas on the CT examination and measures 6.3 x 0.8 x 3 cm. There is a more complex collection which has indwelling catheter. It has the appearance of retrac ting hematoma/seroma. This extends to the axilla and measures 6 cm in length x 1.6 cm in AP dimension . The transverse dimension is likely longer than this although it is greater than the ultrasound field of view. IMPRESSION: 1. Likely a relatively simple seroma inferior to the catheter at what was felt to be the collec tion that contained gas on the prior examination which may be resorbed. 2. Postoperative hematoma/seroma with indwelling catheter. Recommend correlation with the compon ents coming out of the drainage catheter tube. Evaluate for abscess. POS: MAYRA
[2018-12-01] MEDS ORDERED: Dextrose 5% in Water 1,000 ML IV PRN (19:09)
[2018-12-01] MEDS ORDERED: Dextrose 50% Abboject 50 ML SYRINGE SLOW IVP PRN (19:09)
[2018-12-01] MEDS ORDERED: HYDROcodone/Acetaminophen 5/325 mg Tablet PO PRN ×2 (19:10)
[2018-12-01] MEDS ORDERED: Ondansetron PF 4 MG/2 ML Vial IVP PRN (19:10)
[2018-12-01] MEDS ORDERED: Acetaminophen 325 MG TAB PO PRN (19:10)
[2018-12-01] MEDS ORDERED: Ondansetron ODT 4 MG TAB SL PRN (19:10)
[2018-12-01] MEDS ORDERED: Morphine 4 MG/ML VIAL SLOW IVP PRN ×2 (19:10→19:11)
[2018-12-01] MEDS ORDERED: Ondansetron HCl/PF 4 MG in Sodium Chloride 0.9% 50 ML IVPB PRN (19:11)
[2018-12-01] MEDS ORDERED: Lorazepam 2 MG/ML VIAL SLOW IVP PRN (19:11)
[2018-12-01] MEDS: Clindamycin/D5W 600 MG in Premix Bag 1 BAG IVPB SCH (20:25)
--- NOTE | 2018-12-01 20:28 | HP ---
CHIEF COMPLAINT: Painful mastectomy incision. HISTORY OF PRESENT ILLNESS: A 38-year-old female, who underwent a left total mastectomy on November 17 with sentinel node biopsy. It was a 4.3 cm tumor, negative margins, and zero of two sentinel node found. She had a drain removed 6 days ago. Four days ago, she noticed increasing pain and swelling of the left chest. Mild fever, went to the emergency room in [place], where they kept her for a day to treat her tachycardia and diabetes. PAST MEDICAL HISTORY: Significant for hypertension, breast cancer, and diabetes. PAST SURGICAL HISTORY: She has had submandibular gland excision, ankle surgery, wrist surgery, and left mastectomy. MEDICATIONS: 1. Levemir 40 b.i.d. 2. Glyburide 10 b.i.d. 3. Atorvastatin 80. 4. Lyrica. 5. Cyclobenzaprine 10. 6. Soma 350. 7. Ativan. 8. Xanax. ALLERGIES: SHE HAS NO KNOWN DRUG ALLERGIES. SOCIAL HISTORY: She is single. Unemployed. She has 2 children. Smokes 1 pack per day. Social alcohol. FAMILY HISTORY: Diabetes, cancer, and hypertension. PHYSICAL EXAMINATION: VITAL SIGNS: Temperature 99.4, pulse 100, and blood pressure 117/59. GENERAL: She is awake and alert, does not appear to be in much distress. HEENT: Unremarkable. LUNGS: Clear. HEART: Regular rate and rhythm. CHEST: She is very tender across her mastectomy area on the left. There is some fluctuance. She still has a drain in, that has about 40 mL of bloody drainage. IMAGING: She had a CT scan showing an air-fluid level in that breast with 2 separate fluid collections confirmed by ultrasound and suggestive of possible abscess. LABORATORY DATA: Her white count is 5.9, H and H are 9 and 30, and platelet count 440. Electrolytes are fine. Her glucose is 262. ASSESSMENT: Possible breast abscess on the left. PLAN: She just ate at 1 p.m., plan is to admit, treat with IV antibiotics, possible I and D tomorrow. Job ID: [id number]
[2018-12-01] MEDS: Morphine 4 MG/ML VIAL SLOW IVP PRN (20:35)
[2018-12-01] MEDS: Insulin Regular 300 UNITS/3 ML VIAL SC PRN (22:23)
[2018-12-01] MEDS: Piperacillin/Tazobactam 3.375 GM in Sodium Chloride 0.9% 100 ML IVPB SCH (23:38)
[2018-12-02 01:51] VITALS: BMI 31.2
[2018-12-02] MEDS: Clindamycin/D5W 600 MG in Premix Bag 1 BAG IVPB SCH ×4 (03:21→20:54)
[2018-12-02] MEDS: Piperacillin/Tazobactam 3.375 GM in Sodium Chloride 0.9% 100 ML IVPB SCH ×4 (06:03→23:35)
[2018-12-02] MEDS ORDERED: Morphine 2 MG/ML SYRINGE ONE ×2 (07:36→07:39)
[2018-12-02] MEDS ORDERED: Promethazine HCl 25 MG/ML VIAL SLOW IVP PRN ×3 (08:52→16:40)
[2018-12-02] MEDS ORDERED: Promethazine HCl 25 MG/ML VIAL IM PRN (08:52)
[2018-12-02] MEDS ORDERED: Ondansetron HCl/PF 4 MG/2 ML Vial IVP PRN (08:52)
[2018-12-02] MEDS ORDERED: Clindamycin/D5W 600 mg/50 ml Premix Bag ONE (08:59)
[2018-12-02] MEDS ORDERED: Fentanyl 100 MCG/2 ML VIAL ONE ×2 (09:01→10:05)
[2018-12-02] MEDS ORDERED: Ondansetron HCl/PF 4 MG in Sodium Chloride 0.9% 50 ML IVPB PRN (11:06)
[2018-12-02] MEDS: Ondansetron PF 4 MG/2 ML Vial SLOW IVP PRN (11:16)
[2018-12-02] MEDS: Morphine 4 MG/ML VIAL SLOW IVP PRN ×3 (11:16→20:58)
--- NOTE | 2018-12-02 11:16 | OP ---
DATE OF PROCEDURE: 12/02/2018 PREOPERATIVE DIAGNOSIS: Left breast abscess. PROCEDURE PERFORMED: Incision and drainage with placement of wound VAC. INDICATIONS: The patient is a 38-year-old female, who is two weeks status post left mastectomy, who had a high-output drain, developed increasing pain and fever. CT and ultrasound suggested abscess that was not communicating to the drain. FINDINGS: There were a couple of pockets of fluid in left lateral chest wall, one superior and one inferior, that were drained. Cultures were obtained. DESCRIPTION OF PROCEDURE: After informed consent was obtained, the patient was taken to the operating room and given general endotracheal anesthesia. She was placed in supine position. Her chest was prepped and draped in usual fashion after the drain was removed. The lateral aspect of the incision was already kind of . This was opened further, encountered two pockets. These were cultured. They were broken up digitally and then the pulse drink box mechanic was used to irrigate the cavities. Hemostasis achieved with electrocautery and then the Wound Care Team came in and placed a wound VAC. The patient tolerated the procedure well, transferred to Recovery in good condition. Job ID: [id number]
[2018-12-02] MEDS ORDERED: PHENYLEPHRINE-NS 100 MCG/ML 10 ML SYRINGE ONE (13:42)
[2018-12-02] MEDS ORDERED: Lidocaine 1% PF 5 ML VIAL ONE (13:42)
[2018-12-02] MEDS ORDERED: PROPOFOL 200 MG/20 ML VIAL ONE (13:42)
[2018-12-02] MEDS ORDERED: Sodium Chloride 0.9% 500 ML IV SCH (15:45)
[2018-12-03] MEDS: Insulin Regular 300 UNITS/3 ML VIAL SC PRN ×3 (00:19→18:45)
[2018-12-03] MEDS: Morphine 4 MG/ML VIAL SLOW IVP PRN ×4 (00:24→22:38)
[2018-12-03] MEDS: Clindamycin/D5W 600 MG in Premix Bag 1 BAG IVPB SCH ×2 (03:03→08:31)
[2018-12-03] MEDS: Piperacillin/Tazobactam 3.375 GM in Sodium Chloride 0.9% 100 ML IVPB SCH (06:01)
[2018-12-03] MEDS ORDERED: Vancomycin HCl 1.75 GM in Sodium Chloride 0.9% 500 ML IVPB SCH (09:00)
--- NOTE | 2018-12-03 09:38 | PRG ---
DATE OF SERVICE: 12/03/2018 SUBJECTIVE: The patient reports she is still having quite a bit of pain on that left chest. The cultures came back Staph aureus from the fluid collection. OBJECTIVE: VITAL SIGNS: Her temperature is 97.9, pulse 89, and blood pressure 112/76. GENERAL: She is awake, alert. She is tolerating regular diet. Her wound looks good. I do not feel any undrained fluid collections. Wound VAC is on. ASSESSMENT: Left breast abscess. PLAN: Continue wound care. While she is in there, we are waiting home VAC. We will keep her on vancomycin until we have a home VAC. Job ID: [id number]
[2018-12-03 10:41] LABS: Vancomycin, Peak Less than 1.1 ug/mL (20.0-40.0)
[2018-12-03] MEDS: Vancomycin HCl 1.25 GM in Sodium Chloride 0.9% 250 ML 250 ML IVPB SCH ×2 (11:16→22:02)
[2018-12-03] MEDS: Ondansetron PF 4 MG/2 ML Vial SLOW IVP PRN ×2 (16:08→22:03)
[2018-12-04] MEDS: Morphine 4 MG/ML VIAL SLOW IVP PRN ×2 (06:30→09:11)
[2018-12-04] MEDS: Insulin Regular 300 UNITS/3 ML VIAL SC PRN (06:31)
[2018-12-04] MEDS ORDERED: Bisacodyl 10 MG SUPP PR PRN (07:18)
[2018-12-04] MEDS: Vancomycin HCl 1.25 GM in Sodium Chloride 0.9% 250 ML 250 ML IVPB SCH (09:12)
[2018-12-04 11:56] VITALS: BP 131/82; TEMP 97.4
--- NOTE | 2018-12-04 12:40 | DIS ---
DATE OF ADMISSION: 12/01/2018 DATE OF DISCHARGE: 12/04/2018 DISCHARGE DIAGNOSIS: Staphylococcal breast abscess, left side. PROCEDURES DURING ADMISSION: Incision and drainage of breast abscess. HOSPITAL COURSE: The patient was admitted, given IV fluids, IV antibiotics. She was taken to the operating room, where she underwent I and D. A wound VAC was placed. Cultures grew out Staphylococcus. She was treated with vancomycin. She is now doing well. She will get home health with VAC changes. She will follow up with Dr. Agosto in 2 weeks. Job ID: [id number]
== END 2018-12-04 13:00 | disposition home or self-care (01) | DRG 863 ==
LOC: ERS 14:26 → SURG A 19:08
PROVIDERS: ADMIT Surgery; ATTEND Surgery
PROC: 0H9UXZZ (ICD-10-PCS; principal; 2018-12-02)
DX: T81.49XA Infection following a procedure, other surgical site, initial encounter (principal); N61.1 Abscess of the breast and nipple; B95.8 Unspecified staphylococcus as the cause of diseases classified elsewhere; I10 Essential (primary) hypertension; E11.9 Type 2 diabetes mellitus without complications; F17.210 Nicotine dependence, cigarettes, uncomplicated; Z85.3 Personal history of malignant neoplasm of breast; Z90.12 Acquired absence of left breast and nipple; Z98.890 Other specified postprocedural states; Y83.6 Removal of other organ (partial) (total) as the cause of abnormal reaction of the patient, or of later complication, without mention of misadventure at the time of the procedure
CPT/HCPCS: 36415; 36416; 80202; 85025; 87070; 87186; 87205; J1642; J1815; J2001; J2060; J2270; J2405; J2543; J2550; J2704; J3010; J3370; J3490; J7050